=== PATIENT | female | born 1955 | race Caucasian/White ===

== ENCOUNTER 2016-06-12 13:57 | Outpatient (CLI) ==
[2015-11-21 10:48] VITALS: BMI 41.5
[2016-06-12 14:33] LABS: ADD URINE MICROSCOPIC NO; BILIRUBIN,URINE Negative (NEGATIVE); KETONES,URINE Negative (NEGATIVE); LEUKOCYTE ESTERASE ,URINE Negative (NEGATIVE); NITRITE,URINE Negative (NEGATIVE); PROTEIN,URINE Negative (NEGATIVE); URINE, BLOOD Negative (NEGATIVE)
== END 2016-06-12 13:58 | disposition home or self-care (01) ==
LOC: LAB 13:57
PROVIDERS: ATTEND Emergency Medicine
DX: R35.0 Frequency of micturition (principal); R39.15 Urgency of urination
CPT/HCPCS: 81001

== ENCOUNTER 2016-10-07 13:48 | Emergency (ER) ==
[2016-10-07 13:53] VITALS: BP 125/84; TEMP 98; BMI 43.2
[2016-10-07 14:27] LABS: BILIRUBIN,URINE 1+ (NEGATIVE); KETONES,URINE Negative (NEGATIVE); LEUKOCYTE ESTERASE ,URINE Negative (NEGATIVE); NITRITE,URINE Negative (NEGATIVE); PROTEIN,URINE 2+ (NEGATIVE); URINE, BLOOD 3+ (NEGATIVE)
[2016-10-07 14:29] LABS: ADD URINE MICROSCOPIC YES
[2016-10-07 14:30] LABS: BACTERIA,URINE 1+ (NOT PRESENT)
--- NOTE | 2016-10-07 14:39 | ED.PDOC ---
General ED Provider: Dr. BRENDA PARKINSON JR Chief Complaint: Vaginal Bleeding Stated Complaint: STARTED HAVING VAGINAL BLEEDING THIS MORNING...IN PULL UP PANTIES, SOME IN STOOL AND SOME ON TOILET PAPER. HAD WENT THROUGH MENOPAUSE IN HER EARLY 40S...EXPERIENCING BACK PAIN AND STOMACH CRAMPS SIMILAR TO WHEN SHE USED TO HAVE HER MONTHLY PERIODS[ End ]THIS MORNING 98.0 71 20 93% 125/84 . ---note UA results--- has lost 18 pounds over 3 months- disc need to see obgyn for biopsy ultrasound and definitive diagnosis --- possiblity of cancer discussed Time Seen by Physician: 14:38 Mode of Arrival: Walk-In Information Source: Patient Exam Limitations: No limitations Primary Care Provider: JACQUELIN MILTON Nursing and Triage Documentation Reviewed and Agree: No GI Complaint Exam - Abdominal Pain Complaint/Exam : 2 Para: 1 Hx Total # of Abortions (Spontaneous & Elective): 1 Review of Systems - Review Of Systems Constitutional: Reports: Malaise Eyes: Reports: No symptoms Ears, Nose, Mouth, Throat: Reports: No symptoms Respiratory: Reports: No symptoms Cardiac: Reports: No symptoms GI: Reports: Abdominal pain : Reports: Hematuria, Pain Musculoskeletal: Reports: No symptoms Skin: Reports: No symptoms Neurological: Reports: No symptoms Endocrine: Reports: No symptoms Hematologic/Lymphatic: Reports: No symptoms All Other Systems: Other Past Medical History - Past Medical History Previously Healthy: Yes Endocrine: Reports: DM 2 Cardiovascular: Reports: [place], Hypertension Respiratory: Reports: None Hematological: Reports: None Gastrointestinal: Reports: None Genitourinary: Reports: None Neuro/Psych: Reports: None Musculoskeletal: Reports: Arthritis Cancer: Reports: None Last Menstrual Period: N/A - Surgical History General Surgical History: Reports: Hysterectomy, Cholecystectomy - Family History Family History: Reports: Unknown - Social History Smoking Status: Current every day smoker Hx Substance Use: No Alcohol Screening: Occasionally - Immunizations Tetanus Shot up to Date: Yes Physical Exam - Physical Exam Appearance: Well-appearing, Obese Ill-appearing: Mild Pain Distress: Mild Neck: Supple Respiratory: Airway patent GI/: Soft, Nontender, No masses, Bowel sounds normal (note glaze handler exam) Musculoskeletal: Normal strength, ROM intact, No edema, No calf tenderness Skin: Warm, Dry, Normal color Neurological: Sensation intact, Motor intact, Reflexes intact, Cranial nerves intact, Alert, Oriented Critical Care Note - Critical Care Note Total Time (mins): 0 Course - Course Orders, Labs, Meds: Lab Review 10/07/16 14:05 Urine Color Red Urine Clarity Cloudy Urine pH 6.0 Ur Specific [place] 1.020 Urine Protein 2+ Urine Glucose (UA) 2+ Urine Ketones Negative Urine Blood 3+ Urine Nitrite Negative Urine Bilirubin 1+ Urine Urobilinogen 0.2 Ur Leukocyte Esterase Negative Urine Microscopic RBC Tntc Urine Microscopic WBC 5-10 Ur Squamous Epith Cells 5-10 Urine Bacteria 1+ Orders Category Date Time Status URINALYSIS C & S IF INDICATED Stat LAB 10/07/16 14:05 Completed URINE CULTURE Stat LAB 10/07/16 14:05 Received Vital Signs: Temp Pulse Resp BP Pulse Ox 10/07/16 13:48 98 F 71 20 125/84 93 L Departure - Departure Time of Disposition: 15:11 Disposition: HOME SELF-CARE Discharge Problem: Bleeding from vagina Instructions: Dysfunctional Uterine Bleeding (ED) Condition: Stable Pt referred to PMD for follow-up: Yes Additional Instructions: Please follow-up with Dr. iMlton in 1-2 days. follow up with Gynecology as soon as possible return if worse, consider hospital with research lab assistant on staff(andra copeland) Allergies/Adverse Reactions: Allergies No Known Allergies Allergy (Verified 10/07/16 13:55) Home Medications: Ambulatory Orders Lisinopril 20 mg PO BID 03/29/14 Metformin HCl 500 mg PO DAILY 03/29/14 Aspirin [Ecotrin] 81 mg PO DAILY 05/11/14 Atorvastatin Calcium 80 mg PO DAILY 05/11/14 Metoprolol Tartrate [Lopressor] 25 mg PO BID 05/11/14 Tizanidine HCl [Zanaflex] 2 mg PO DAILY 05/11/14 Hydrocodone/Acetaminophen [[place] 10-325 Tablet] 1 each PO Q6HR PRN #14 tablet Calcium Carbonate [Calcium] 2 cap PO DAILY 10/07/16 Canagliflozin [Invokana] 1 tab PO DAILY 10/07/16 Duloxetine HCl 60 mg PO DAILY 10/07/16 Gabapentin 300 mg PO TID 10/07/16 Hydrochlorothiazide 12.5 mg PO EVERY OTHER DAY 10/07/16 [place]-3 Fatty Acids/Fish Oil [Fish Oil 1,000 mg Capsule] 3 cap PO DAILY Tolterodine Tartrate 2 mg PO DAILY 10/07/16 Complaint Exam - UTI Female Complaint/Exam : 2 Para: 1 Hx Total # of Abortions (Spontaneous & Elective): 1 - Complaint/Exam Patient Complains of: Reports: Vaginal discharge (bleeding) Onset/Duration: since this am Symptoms Are: Still present Timing: Intermittent Episodes of Voiding Over Last 12 Hours: 3 Initial Severity: Moderate (cramping used hydrocodone) Current Severity: Mild Location of Pain: Reports: Suprapubic Character: Reports: Colicky, Cramping, Bloody urine Aggravating: Reports: None Alleviating: Reports: None Associated Signs and Symptoms: Reports: Back pain, Hematuria, Dysuria, Abdominal Pain, Vaginal bleeding. Denies: Diaphoresis, Fever, Constipation, Blood in stool, Rectal pain, Appetite change, Nausea, Vomiting, Decreased urine output, Increased urine frequency, Increased thirst, Decreased activity, Lethargy, Bubble bath use Related History: Denies: Similar episode Ovarian Torsion Risk Factors: Denies: None Surgical Obstruction Risk Factors: Denies: None RH Status: Unknown Related Surgical History: Reports: None Abdominal Findings: Present: None Vulva Exam: Present: Normal Findings Vaginal Exam: Present: Normal Findings, Blood Cervical Exam: Present: Normal findings, Discharge (blood) Uterine Exam: Size WNL, Nontender Adnexal Exam: Present: Normal Findings (not palpable) Differential Diagnoses: Other (DUB post menopausal bleed consider neoplasm)
[2016-10-12 19:09] LABS: GENITAL CULTURE Final report (.)
[2016-10-15 06:56] LABS: GENITAL CULT RESULT 1 Yeast isolated. (.)
== END 2016-10-07 15:50 | disposition home or self-care (01) ==
LOC: ED 13:48
DX: N93.8 Other specified abnormal uterine and vaginal bleeding (principal); M54.9 Dorsalgia, unspecified; R10.9 Unspecified abdominal pain; R63.4 Abnormal weight loss; R31.9 Hematuria, unspecified; E11.9 Type 2 diabetes mellitus without complications; I10 Essential (primary) hypertension; Z78.0 Asymptomatic menopausal state; Z79.899 Other long term (current) drug therapy; I25.2 Old myocardial infarction; F17.210 Nicotine dependence, cigarettes, uncomplicated
CPT/HCPCS: 36415; 81001; 87070; 87086; 99283

== ENCOUNTER 2017-01-24 14:51 | Emergency (ER) ==
[2017-01-24 14:55] VITALS: BP 153/84; TEMP 98.2; BMI 45.1
[2017-01-24 15:15] LABS: BILIRUBIN,URINE 1+ (NEGATIVE); KETONES,URINE Trace (NEGATIVE); LEUKOCYTE ESTERASE ,URINE 3+ (NEGATIVE); NITRITE,URINE Negative (NEGATIVE); PROTEIN,URINE 1+ (NEGATIVE); URINE, BLOOD 2+ (NEGATIVE)
[2017-01-24 15:16] LABS: ADD URINE MICROSCOPIC YES
[2017-01-24 15:19] LABS: BACTERIA,URINE TRACE (NOT PRESENT)
[2017-01-24 15:32] LABS: BASOPHILS # (AUTO) 0.1 K/uL (0-0.2); BASOPHILS % (AUTO) 0.5 % (0.0-3.0); EOSINOPHILS # (AUTO) 0.3 K/ul (0.0-0.7); EOSINOPHILS % (AUTO) 2.7 % (0.0-7.0); HEMATOCRIT 49.4 % (37.0-47.0); HEMOGLOBIN 16.1 g/dl (12.0-16.0); IMMATURE GRANULOCYTE % (AUTO) 0.9 % (0.0-5.0); MEAN CORPUSCULAR HEMOGLOBIN 29.1 pg (27.0-31.0); MEAN CORPUSCULAR HGB CONC 32.6 (31.8-35.4); MEAN CORPUSCULAR VOLUME 89.2 fl (81.0-99.0); MONOCYTES # (AUTO) 0.8 K/uL (0.4-2.0); MONOCYTES % (AUTO) 7.5 (0-10); NEUTROPHILS # (AUTO) 7.3 K/ul (2.0-6.9); NEUTROPHILS % (AUTO) 69.4; PLATELET COUNT 236 10^3/uL (140-440); RED BLOOD COUNT 5.54 10^6/ul (4.20-5.40); WHITE BLOOD COUNT 10.52 K/ul (4.6-10.2)
[2017-01-24 15:50] LABS: ALBUMIN 3.3 g/dL (3.4-5.0); ALBUMIN/GLOBULIN RATIO 0.87; ANION GAP 14.7; BILIRUBIN,TOTAL 0.39 mg/dL (0.00-1.20); BUN/CREATININE RATIO 15.78; CALCIUM 9.8 mg/dL (8.2-10.2); CREATININE 0.76 mg/dL (0.60-1.30); POTASSIUM 3.7 mmol/L (3.5-5.10); TOTAL PROTEIN 7.1 g/dL (5.8-8.1)
[2017-01-24] MEDS ORDERED: LIDOCAINE HCL 1% SDV SUBCUT STA (16:06)
[2017-01-24] MEDS ORDERED: ROCEPHIN IM STA (16:06)
--- NOTE | 2017-01-24 16:10 | ED.PDOC ---
General ED Provider: Dr. SETH LEI Chief Complaint: Urinary Problem Stated Complaint: dysuria Time Seen by Physician: 15:00 Mode of Arrival: Walk-In Information Source: Patient Exam Limitations: No limitations Primary Care Provider: JACQUELIN MILTON Nursing and Triage Documentation Reviewed and Agree: Yes Complaint Exam - Complaint/Exam Patient Complains of: Reports: Dysuria Onset/Duration: 3 days Symptoms Are: Still present Timing: Intermittent Initial Severity: Moderate Current Severity: Mild Location of Pain: Reports: Right, Left, Flank, Suprapubic Character: Reports: Burning, Cramping Aggravating: Reports: Urination Alleviating: Reports: None Associated Signs and Symptoms: Reports: Dysuria. Denies: Diaphoresis, Back pain , Fever, Hematuria, Constipation, Blood in stool, Rectal pain, Appetite change, Nausea, Vomiting, Decreased urine output, Increased urine frequency, Increased thirst, Decreased activity, Lethargy, Abdominal Pain, Bubble bath use, Vaginal bleeding, Vaginal discharge, Genital swelling, Genital blisters, Retained foreign body Related History: Reports: Similar episode Ectopic Risk Factors: Reports: None Ovarian Torsion Risk Factors: Reports: None Surgical Obstruction Risk Factors: Reports: None RH Status: Unknown Related Surgical History: Reports: None Abdominal Findings: Present: None Differential Diagnoses: Ureteral Stone, UTI Review of Systems - Review Of Systems Constitutional: Reports: No symptoms Eyes: Reports: No symptoms Ears, Nose, Mouth, Throat: Reports: No symptoms Respiratory: Reports: No symptoms Cardiac: Reports: No symptoms GI: Reports: No symptoms : Reports: Dysuria, Flank pain Musculoskeletal: Reports: No symptoms Skin: Reports: No symptoms Neurological: Reports: No symptoms Endocrine: Reports: No symptoms Hematologic/Lymphatic: Reports: No symptoms All Other Systems: Reviewed and Negative Past Medical History - Past Medical History Previously Healthy: Yes Endocrine: Reports: DM 2 Cardiovascular: Reports: [place], Hypertension Respiratory: Reports: None Hematological: Reports: None Gastrointestinal: Reports: None Genitourinary: Reports: None Neuro/Psych: Reports: None Musculoskeletal: Reports: Arthritis Cancer: Reports: None Last Menstrual Period: N/A - Surgical History General Surgical History: Reports: Hysterectomy, Cholecystectomy - Family History Family History: Reports: Unknown - Social History Smoking Status: Current every day smoker Hx Substance Use: No Alcohol Screening: Occasionally - Immunizations Tetanus Shot up to Date: No Physical Exam - Physical Exam Appearance: Well-appearing, No pain distress, Well-nourished Eyes: IVAN, EOMI, Conjunctiva clear ENT: Ears normal, Nose normal, Oropharynx normal Respiratory: Airway patent, Breath sounds clear, Breath sounds equal, Respirations nonlabored Cardiovascular: RRR, Pulses normal, No rub, No murmur GI/: Soft, Nontender, No masses, Bowel sounds normal, No Organomegaly Musculoskeletal: Normal strength, ROM intact, No edema, No calf tenderness Skin: Warm, Dry, Normal color Neurological: Sensation intact, Motor intact, Reflexes intact, Cranial nerves intact, Alert, Oriented Psychiatric: Affect appropriate, Mood appropriate Critical Care Note - Critical Care Note Total Time (mins): 0 Course - Course Hematology/Chemistry: 01/24/17 15:30 01/24/17 15:30 Orders, Labs, Meds: Lab Review 01/24/17 01/24/17 01/24/17 15:00 15:30 15:30 WBC 10.52 H RBC 5.54 H Hgb 16.1 H Hct 49.4 H MCV 89.2 MCH 29.1 MCHC 32.6 RDW Coeff of Brenda 14.6 Plt Count 236 Immature Gran % (Auto) 0.9 Neut % (Auto) 69.4 Lymph % (Auto) 19.0 [place] % (Auto) 7.5 Eos % (Auto) 2.7 Baso % (Auto) 0.5 Immature Gran # (Auto) 0.1 Neut # 7.3 H Lymph # 2.0 [place] # 0.8 Eos # 0.3 Baso # 0.1 Sodium 145 Potassium 3.7 Chloride 108 H Carbon Dioxide 26 Anion Gap 14.7 BUN 12 Creatinine 0.76 Estimated GFR (MDRD) 78.00 BUN/Creatinine Ratio 15.78 Glucose 183 H Calcium 9.8 Total Bilirubin 0.39 AST 9 L ALT 11 L Alkaline Phosphatase 85 Total Protein 7.1 Albumin 3.3 L Globulin 3.8 Albumin/Globulin Ratio 0.87 Urine Color Yellow Urine Clarity Cloudy Urine pH 6.0 Ur Specific [place] >=1.030 Urine Protein 1+ Urine Glucose (UA) Negative Urine Ketones Trace Urine Blood 2+ Urine Nitrite Negative Urine Bilirubin 1+ Urine Urobilinogen 1.0 Ur Leukocyte Esterase 3+ Urine Microscopic RBC 2-5 Urine Microscopic WBC 10-20 Ur Squamous Epith Cells 5-10 Urine Bacteria Trace Orders Category Date Time Status CBC W/ AUTO DIFF Stat LAB 10/05/17 15:20 Ordered COMPREHENSIVE METABOLIC PANEL Stat LAB 01/24/17 15:20 Ordered UA [URINALYSIS C & S IF INDICATED] Stat LAB 01/24/17 15:00 Completed URINALYSIS C & S IF INDICATED Stat LAB 01/24/17 15:20 Uncollected URINE CULTURE Routine LAB 01/24/17 15:20 Received Ceftriaxone Sodium [Rocephin] MEDS 01/24/17 16:06 Stat 1 gm IM ONCE STA Lidocaine HCl/Pf [Lidocaine HCl 1% Sdv] MEDS 01/24/17 16:06 Stat 5 ml SUBCUT ONCE STA CT ABDOMEN/PELVIS WO CONTRAST Stat RADS 01/24/17 15:22 Ordered Medications Discontinued Medications Generic Name Dose Route Start Last Admin Trade Name Freq PRN Reason Stop Dose Admin Ceftriaxone Sodium 1 gm 01/24/17 16:06 Rocephin IM 01/24/17 16:07 ONCE STA Lidocaine HCl 5 ml 01/24/17 16:06 Lidocaine Hcl 1% Sdv SUBCUT 01/24/17 16:07 ONCE STA Vital Signs: Temp Pulse Resp BP Pulse Ox 01/24/17 14:52 98.2 F 86 20 153/84 H 94 L Departure - Departure Time of Disposition: 16:08 (seen with santiago ct scannnnader down requested pt to obtain report from pmd) Disposition: HOME SELF-CARE Discharge Problem: Urinary tract infectious disease Instructions: Urinary Tract Infection in Women (ED) Condition: Good Pt referred to PMD for follow-up: Yes Additional Instructions: Please call your Family Physician as soon as possible to schedule a follow-up appointment. Allergies/Adverse Reactions: Allergies No Known Allergies Allergy (Verified 01/24/17 14:55) Home Medications: Ambulatory Orders Lisinopril 20 mg PO BID 03/29/14 Metformin HCl 500 mg PO DAILY 03/29/14 Aspirin [Ecotrin] 81 mg PO DAILY 05/11/14 Atorvastatin Calcium 80 mg PO DAILY 05/11/14 Metoprolol Tartrate [Lopressor] 25 mg PO BID 05/11/14 Tizanidine HCl [Zanaflex] 2 mg PO DAILY 05/11/14 Hydrocodone/Acetaminophen [[place] 10-325 Tablet] 1 each PO Q6HR PRN #14 tablet Calcium Carbonate [Calcium] 2 cap PO DAILY 10/07/16 Duloxetine HCl 60 mg PO DAILY 10/07/16 Gabapentin 300 mg PO TID 10/07/16 Hydrochlorothiazide 12.5 mg PO EVERY OTHER DAY 10/07/16 Naproxen [Naprosyn] 500 mg PO Q12HR PRN #30 tablet 10/07/16 [place]-3 Fatty Acids/Fish Oil [Fish Oil 1,000 mg Capsule] 3 cap PO DAILY Tolterodine Tartrate 2 mg PO DAILY 10/07/16
--- NOTE | 2017-01-24 16:28 | CT ---
EXAM: CT scan of the abdomen and pelvis without contrast HISTORY: Pain TECHNIQUE: Imaging of the abdomen and pelvis was performed without contrast. 5 mm thin axial images and coronal and sagittal images were provided for interpretation. FINDINGS: There has been previous cholecystectomy. Low density changes are seen within the liver. The spleen, pancreas, adrenal glands and kidneys appear normal. The proximal ureters are normal size . There is a nonobstructing calculus seen within the inferior pole of the right kidney. The small a nd large bowel loops are normal caliber. There is no free air. No retroperitoneal abnormalities are seen. The helical images obtained through the pelvis demonstrate a normal appearance of the rectum, urinary bladder. There is no free fluid seen within the pelvis. The appendix appears normal. Scattered dive rticula are seen within the sigmoid colon without acute inflammation. Lung bases are clear. No lytic or blastic lesions are seen within the osseous structures. IMPRESSION: There is no bowel obstruction or acute inflammatory change seen within the abdomen and p kofi. There has been previous cholecystectomy. Fatty infiltration of the liver.
== END 2017-01-24 16:49 | disposition home or self-care (01) ==
LOC: ED 14:51
DX: N39.0 Urinary tract infection, site not specified (principal); F17.210 Nicotine dependence, cigarettes, uncomplicated; E11.9 Type 2 diabetes mellitus without complications; I10 Essential (primary) hypertension; I25.2 Old myocardial infarction; Z79.899 Other long term (current) drug therapy
CPT/HCPCS: 36415; 80053; 81001; 85025; 87086; 87186; 96372; 99283

== ENCOUNTER 2017-04-09 12:32 | Outpatient (CLI) | END 2017-04-09 12:33 | disposition home or self-care (01) | LOC: CAR 12:32 | PROVIDERS: ATTEND Internal Medicine | DX: R06.02 Shortness of breath (principal) | CPT/HCPCS: 94761 ==

== ENCOUNTER 2017-04-27 13:06 | Emergency (ER) ==
[2017-04-27 13:21] VITALS: BP 185/91; TEMP 100.5; BMI 45.3
--- NOTE | 2017-04-27 13:23 | ED.PDOC ---
General ED Provider: Dr. CRISTI BERTRAND Chief Complaint: Respiratory Complaint Stated Complaint: Patient is a 61 year old female who comes to the ER with Cough , sneezing, body aches, and SOA. States she took Aleve yesterday, none today. Time Seen by Physician: 13:22 Mode of Arrival: Walk-In Information Source: Patient Exam Limitations: No limitations Primary Care Provider: JACQUELIN MILTON Nursing and Triage Documentation Reviewed and Agree: Yes Reviewed sepsis parameters & appropriate labs ordered?: Yes System Inflammatory Response Syndrome: Resp >20/Minute Sepsis Protocol: For patient's 13 years and over: Temp is 96.8 and below OR 101 and greater Pulse >90 BPM Resp >20/minute Acutely Altered Mental Status Are patient's symptoms suggestive of a new infection, such as: -Pneumonia -Skin, Soft Tissue -Endocarditis -UTI -Bone, Joint Infection -Implantable Device -Acute Abdominal Infection -Wound Infection -Meningitis -Blood Stream Catheter Infection -Unknown System Inflammatory Response Syndrome: Not Applicable Respiratory Complaint Exam - Respiratory Complaint/Exam Onset/Duration: 1 month Symptoms Are: Still present Timing: Constant Initial Severity: Mild Current Severity: Moderate Location: Chest Character: Reports: Non-productive cough Aggravating: Reports: Allergens, URI, Passive smoke exposure, Weather Alleviating: Reports: None Associated Signs and Symptoms: Reports: Dyspnea, URI Related History: Reports: Similar episode History of Healthcare-Acquired Pneumonia: No Related Surgical History: Reports: None Pulmonary Embolism Risk Factors: None Cardiac Risk Factors: Reports: None Pseudomonas Risk Factors: Reports: None Tuberculosis Risk Factors: Reports: None Status Asthmaticus Risk Factors: Reports: None Home Oxygen Use: No Recent Stress Test: No Recent Echo/LV Function: No Current Antibiotic Use: No Current Asthma Medication Use: No Inadequate Respiratory Effort: No Dysphagia Present: No Stridor Present: No JVD Present: No Accessory Muscle Use: No Retractions: Not Present Review of Systems - Review Of Systems Constitutional: Reports: Other (bodyaches.) Eyes: Reports: No symptoms Ears, Nose, Mouth, Throat: Reports: No symptoms Respiratory: Reports: Cough (with sneezing ), Short of air Cardiac: Reports: No symptoms GI: Reports: No symptoms : Reports: No symptoms Musculoskeletal: Reports: No symptoms Skin: Reports: No symptoms Neurological: Reports: No symptoms Endocrine: Reports: No symptoms Hematologic/Lymphatic: Reports: No symptoms All Other Systems: Reviewed and Negative Past Medical History - Past Medical History Previously Healthy: Yes Endocrine: Reports: DM 2 Cardiovascular: Reports: [place], Hypertension Respiratory: Reports: None Hematological: Reports: None Gastrointestinal: Reports: None Genitourinary: Reports: None Neuro/Psych: Reports: None Musculoskeletal: Reports: Arthritis Cancer: Reports: None Last Menstrual Period: unknown - Surgical History General Surgical History: Reports: Hysterectomy, Cholecystectomy - Family History Family History: Reports: Unknown - Social History Smoking Status: Current every day smoker, Heavy tobacco smoker Hx Substance Use: No Alcohol Screening: None Physical Exam - Physical Exam Appearance: Ill-appearing, No pain distress, Obese Ill-appearing: Mild Eyes: IVAN, EOMI, Conjunctiva clear ENT: Ears normal, Nose normal, Oropharynx normal Respiratory: Airway patent, Breath sounds equal, Breath sounds diminished, Respirations nonlabored Cardiovascular: RRR, Pulses normal, No rub, No murmur GI/: Soft, Nontender, No masses, Bowel sounds normal, No Organomegaly Musculoskeletal: Normal strength, ROM intact, No edema, No calf tenderness Skin: Warm, Dry, Normal color Neurological: Sensation intact, Motor intact, Reflexes intact, Cranial nerves intact, Alert, Oriented Psychiatric: Affect appropriate, Mood appropriate Interpretation - Radiology Interpretation Radiology Interpretation By: ED Physician Radiology Results: Negative Exam Interpreted: CXR Critical Care Note - Critical Care Note Total Time (mins): 0 Course - Course Orders, Labs, Meds: Lab Review 04/27/17 13:58 Influenza A (Rapid) Negative by naat Influenza B (Rapid) Negative by naat Orders Category Date Time Status NEBULIZER TREATMENT Stat CARDIO 04/27/17 13:24 Completed FLU A & B RAPID TEST [MOLECULAR FLU A/B] Stat LAB 04/27/17 13:58 Completed Ipratropium/Albuterol Neb [Duoneb] MEDS 04/27/17 13:24 Discontinued 1 vial NEB ONCE STA Prednisone MEDS 04/27/17 13:25 Discontinued 40 mg PO ONCE STA CHEST, 2 VIEWS PA & LAT Stat RADS 04/27/17 13:22 Completed Medications Discontinued Medications Generic Name Dose Route Start Last Admin Trade Name Freq PRN Reason Stop Dose Admin Albuterol/Ipratropium 1 vial 04/27/17 13:24 04/27/17 13:40 Duoneb NEB 04/27/17 13:25 1 vial ONCE STA Administration Prednisone 40 mg 04/27/17 13:25 04/27/17 14:53 Prednisone PO 04/27/17 13:26 40 mg ONCE STA Administration Vital Signs: Temp Pulse Resp BP Pulse Ox 04/27/17 13:07 100.5 F H 80 22 185/91 H 92 L Departure - Departure Time of Disposition: 14:38 Disposition: HOME SELF-CARE Discharge Problem: Bronchitis Instructions: Acute Bronchitis (ED) Condition: Stable Pt referred to PMD for follow-up: Yes Additional Instructions: Push fluids Quit smoking Take medications as prescribed. Prescriptions: Benzonatate [Tessalon Perles] 100 mg PO TID PRN #25 capsule PRN Reason: Cold Symptons Doxycycline Hyclate 100 mg PO BID #20 capsule Methylprednisolone [Medrol Dosepak] 4 mg PO DIRECTED #1 pkg Allergies/Adverse Reactions: Allergies No Known Allergies Allergy (Verified 04/27/17 13:16) Home Medications: Ambulatory Orders Lisinopril 20 mg PO BID 03/29/14 Metformin HCl 500 mg PO DAILY 03/29/14 Aspirin [Ecotrin] 81 mg PO DAILY 05/11/14 Atorvastatin Calcium 80 mg PO DAILY 05/11/14 Metoprolol Tartrate [Lopressor] 25 mg PO BID 05/11/14 Tizanidine HCl [Zanaflex] 2 mg PO DAILY 05/11/14 Hydrocodone/Acetaminophen [[place] 10-325 Tablet] 1 each PO Q6HR PRN #14 tablet Calcium Carbonate [Calcium] 2 cap PO DAILY 10/07/16 Duloxetine HCl 60 mg PO DAILY 10/07/16 Gabapentin 300 mg PO TID 10/07/16 Hydrochlorothiazide 12.5 mg PO EVERY OTHER DAY 10/07/16 Naproxen [Naprosyn] 500 mg PO Q12HR PRN #30 tablet 10/07/16 [place]-3 Fatty Acids/Fish Oil [Fish Oil 1,000 mg Capsule] 3 cap PO DAILY Tolterodine Tartrate 2 mg PO DAILY 10/07/16 Benzonatate [Tessalon Perles] 100 mg PO TID PRN #25 capsule 04/27/17 Doxycycline Hyclate 100 mg PO BID #20 capsule 04/27/17 Methylprednisolone [Medrol Dosepak] 4 mg PO DIRECTED #1 pkg 04/27/17 Disposition Discussed With: Patient
[2017-04-27] MEDS ORDERED: DUONEB NEB STA (13:24)
[2017-04-27] MEDS ORDERED: PREDNISONE PO STA (13:25)
--- NOTE | 2017-04-27 14:41 | DI ---
EXAM: Chest two views HISTORY: Cough, shortness of breath COMPARISON: 09/30/2013 TECHNIQUE: Two views of the chest were performed FINDINGS: No airspace consolidation. Granulomatous calcification. There is no pleural effusion or pneumothorax. The heart is normal in size. The mediastinal contour is normal. There are no acute a bnormalities of the bones. Old left rib fracture. IMPRESSION: No acute cardiopulmonary process.
== END 2017-04-27 15:17 | disposition home or self-care (01) ==
LOC: ED 13:06
DX: J40 Bronchitis, not specified as acute or chronic (principal); F17.210 Nicotine dependence, cigarettes, uncomplicated
CPT/HCPCS: 87502; 94640; 99283

== ENCOUNTER 2017-08-25 00:40 | Emergency (ER) ==
[2017-08-25 00:55] VITALS: BP 147/89; TEMP 98.2; BMI 43.8
--- NOTE | 2017-08-25 02:20 | ED.PDOC ---
General ED Provider: Dr. HELEN ANAYA Chief Complaint: Shoulder Pain/Injury Stated Complaint: Experiencing pain in lower rt neck and upper shoulder since . Primary discomfort over site of 1st costovertebral articulation / paraspinous region. Denies radiculating features. Time Seen by Physician: 00:55 Mode of Arrival: Walk-In Information Source: Patient Exam Limitations: No limitations Primary Care Provider: JACQUELIN MILTON Nursing and Triage Documentation Reviewed and Agree: Yes Reviewed sepsis parameters & appropriate labs ordered?: Yes System Inflammatory Response Syndrome: Not Applicable Sepsis Protocol: For patient's 13 years and over: Temp is 96.8 and below OR 101 and greater Pulse >90 BPM Resp >20/minute Acutely Altered Mental Status Are patient's symptoms suggestive of a new infection, such as: -Pneumonia -Skin, Soft Tissue -Endocarditis -UTI -Bone, Joint Infection -Implantable Device -Acute Abdominal Infection -Wound Infection -Meningitis -Blood Stream Catheter Infection -Unknown System Inflammatory Response Syndrome: Not Applicable Musculoskeletal Complaint Exam - Shoulder Pain Complaint/Exam Mechanism of Injury: Reports: No known trauma Symptoms Are: Still present Timing: Constant Initial Severity: Severe Current Severity: Moderate Location: Reports: Discrete Character: Reports: Sharp, Dull, Aching, Throbbing, Spasmodic, Stiffness Alleviating: Reports: None Aggravating: Reports: Movement, Lifting, Flexion, External rotation, Abduction Associated Signs and Symptoms: Denies: Swelling, Redness, Bruising, Fever, Weakness, Numbness, Tingling Related History: Reports: Dominant hand right. Denies: Similar episode, Occupational injury DVT Risk Factors: Reports: None Septic Arthritis Risk Factors: Reports: None Related Surgical History: Reports: None Limited Range of Motion: Present: External rotation, Rotator cuff muscles Differential Diagnoses: Arthritis, Strain, Bursitis Review of Systems - Review Of Systems Constitutional: Reports: No symptoms Eyes: Reports: No symptoms Ears, Nose, Mouth, Throat: Reports: No symptoms Respiratory: Reports: No symptoms Cardiac: Reports: No symptoms GI: Reports: No symptoms : Reports: No symptoms Musculoskeletal: Reports: No symptoms, Joint swelling (Rt shoulder tender-site of first costal verterbral joint) Skin: Reports: No symptoms Neurological: Reports: No symptoms Endocrine: Reports: No symptoms Hematologic/Lymphatic: Reports: No symptoms All Other Systems: Reviewed and Negative Past Medical History - Past Medical History Previously Healthy: Yes Endocrine: Reports: DM 2 Cardiovascular: Reports: IA, Hypertension Respiratory: Reports: None Hematological: Reports: None Gastrointestinal: Reports: None Genitourinary: Reports: None Neuro/Psych: Reports: None Musculoskeletal: Reports: Arthritis Cancer: Reports: None Last Menstrual Period: UNKNOWN - Surgical History General Surgical History: Reports: Hysterectomy, Cholecystectomy - Family History Family History: Reports: Unknown - Social History Smoking Status: Current every day smoker, Heavy tobacco smoker Hx Substance Use: No Alcohol Screening: None - Immunizations Tetanus Shot up to Date: No Physical Exam - Physical Exam Appearance: Well-appearing, Obese Ill-appearing: Mild Pain Distress: Moderate Eyes: IVAN, EOMI, Conjunctiva clear ENT: Ears normal, Nose normal, Oropharynx normal Neck: Supple (Tenderness Rt C7T1 and first costovertebral joint/middle trapezius tenderness) Respiratory: Airway patent, Breath sounds clear, Breath sounds equal, Respirations nonlabored Cardiovascular: RRR, Pulses normal, No rub, No murmur GI/: Soft Musculoskeletal: Normal strength Skin: Warm, Dry, Normal color Neurological: Sensation intact, Motor intact, Reflexes intact, Cranial nerves intact, Alert, Oriented Psychiatric: Affect appropriate, Mood appropriate Re-Evaluation - Re-Evaluation Time of Re-Evaluation: 03:45 Status: Improved Vital Signs Stable: Yes Appearance: NAD Lungs: Clear Skin: Warm and Dry Neuro: Alert and Oriented X3 CV: RRR Critical Care Note - Critical Care Note Total Time (mins): 0 Course - Course Orders, Labs, Meds: Orders Category Date Time Status Ketorolac Tromethamine [Toradol] MEDS 08/25/17 02:30 Discontinued 15 mg IM ONCE STA CT CERVICAL SPINE W/O CONTRAST Stat RADS 08/25/17 02:[address] SHOULDER RIGHT W/O CONTRAST Stat RADS 08/25/17 02:28 Completed Medications Discontinued Medications Generic Name Dose Route Start Last Admin Trade Name Freq PRN Reason Stop Dose Admin Ketorolac Tromethamine 15 mg 08/25/17 02:30 08/25/17 02:35 Toradol IM 08/25/17 02:31 15 mg ONCE STA Administration Vital Signs: Temp Pulse Resp BP Pulse Ox 08/25/17 00:40 98.2 F 71 20 147/89 H 94 L Departure - Departure Time of Disposition: 05:15 Disposition: HOME SELF-CARE Discharge Problem: Cervical osteoarthritis, Somatic dysfunction of costovertebral joint structure , Shoulder pain, right, Osteolytic lesion Instructions: Arthralgia (ED), Neck Pain (ED) Condition: Good Pt referred to PMD for follow-up: Yes (1 week ) IPMP verified?: No Additional Instructions: Take Current Analgesics and muscle relaxants for pain relief Apply warm moist heat per tolerance for relief of discomfort Exercises as directed See PCP next week Explained testing results and importance of follow up Return earlier if symptoms worsen Allergies/Adverse Reactions: Allergies No Known Allergies Allergy (Verified 08/25/17 00:47) Home Medications: Ambulatory Orders Lisinopril 20 mg PO BID 03/29/14 Metformin HCl 500 mg PO BID 03/29/14 Aspirin [Ecotrin] 81 mg PO DAILY 05/11/14 Atorvastatin Calcium 80 mg PO DAILY 05/11/14 Metoprolol Tartrate [Lopressor] 25 mg PO BID 05/11/14 Tizanidine HCl [Zanaflex] 4 mg PO DAILY 05/11/14 Hydrocodone/Acetaminophen [[place] 10-325 Tablet] 1 each PO Q6HR PRN #14 tablet Gabapentin 300 mg PO TID 10/07/16 Hydrochlorothiazide 12.5 mg PO EVERY OTHER DAY 10/07/16 Oxybutynin Chloride [Ditropan] 5 mg PO DAILY 08/25/17 Disposition Discussed With: Patient
[2017-08-25] MEDS ORDERED: TORADOL IM STA (02:30)
--- NOTE | 2017-08-25 04:29 | CT ---
Exam: CT cervical spine without contrast History: Shoulder and neck pain without injury Technique: [address] cervical spine with multiplanar reformations FINDINGS: The cervical spine shows normal alignment. Vertebral body height is maintained. There is a 6 mm osteolytic lucency of the tip of the spinous process of C7. Probable cortical fracture of th e spinous process tip. No additional suspicious bony lesions are seen. C2-C3: Unilateral right facet arthropathy change without significant central canal or foraminal narr owing. C3-C4: Posterior disc osteophyte complex with right-sided predominance. Mild anterior sac indentati on. Mild right and no left foraminal narrowing. C4-C5: No central canal or foraminal stenosis C5-C6: Posterior disc osteophyte with mild - moderate anterior sac indentation. Moderate bilateral foraminal narrowing. C6-C7: No central canal or foraminal stenosis. C7-T1: No central canal or foraminal stenosis. Impression: 1. There is a osteolytic lesion of the right aspect of the tip of the C7 spinous process. Hairline cortical pathologic fracture suspected. This was not present on cervical spine CT 12/30/2007. Benign and malignant etiologies are considered. 2. Degenerative changes as described.
--- NOTE | 2017-08-25 04:30 | CT ---
Exam: CT right shoulder without contrast History: Shoulder pain Technique: [address] of the right shoulder with multiplanar reformations FINDINGS: No fracture lines are seen. Moderate osteoarthritic enlargement of the acromioclavicular joint. Mild osteoarthritic change of the glenohumeral joint manifest by marginal cystic changes of t he humerus. No acute adjacent chest wall abnormality. Prior healed right rib fractures. Impression: 1. Glenohumeral and acromioclavicular osteoarthritic changes. No acute abnormality of the right ricky ulder.
== END 2017-08-25 05:28 | disposition home or self-care (01) ==
LOC: ED 00:40
DX: M47.812 Spondylosis without myelopathy or radiculopathy, cervical region (principal); M99.08 Segmental and somatic dysfunction of rib cage; M25.511 Pain in right shoulder; M89.9 Disorder of bone, unspecified
CPT/HCPCS: 96372; 99282

== ENCOUNTER 2017-09-06 12:56 | Outpatient (CLI) ==
--- NOTE | 2017-09-09 09:32 | MAMMO ---
EXAM: Bilateral digital screening mammogram (2-D and 3-D) History: Screening Comparison: Bilateral mammogram 03/15/2015 Findings: MLO and CC views of bilateral breasts demonstrate predominately fatty replaced breast pare nchyma. CAD was reviewed by the radiologist. Tomosynthesis was performed. There are no dominant mas ses, no suspicious microcalcifications and no architectural distortions Impression: Stable negative mammogram. Recommend followup routine screening mammography in 1 year. BIRADS 1
== END 2017-09-06 12:57 | disposition home or self-care (01) ==
LOC: RAD 12:56
PROVIDERS: ATTEND Internal Medicine
DX: Z12.31 Encounter for screening mammogram for malignant neoplasm of breast (principal)
CPT/HCPCS: 77067

== ENCOUNTER 2020-01-17 12:06 | Inpatient (IN) ==
[2020-01-17] MEDS ORDERED: ROCEPHIN 2 GM/50 ML D5W 2 GM/50 ML BAG IV STA (12:20)
[2020-01-17] MEDS ORDERED: SODIUM CHLORIDE 1,000 ML IV STA (12:25)
[2020-01-17 12:36] LABS: BASOPHILS % (AUTO) 0.2 % (0.0-3.0); EOSINOPHILS # (AUTO) 0.2 K/ul (0.0-0.7); EOSINOPHILS % (AUTO) 1.1 % (0.0-7.0); HEMOGLOBIN 14.3 g/dl (12.0-16.0); IMMATURE GRANULOCYTE # (AUTO) 0.1 (0.0-1.0); IMMATURE GRANULOCYTE % (AUTO) 0.5 % (0.0-5.0); LYMPHOCYTES # (AUTO) 1.8 K/uL (0.60-3.4); LYMPHOCYTES % (AUTO) 11.1 (10.0-50.0); MEAN CORPUSCULAR HEMOGLOBIN 27.4 pg (27.0-31.0); MEAN CORPUSCULAR HGB CONC 31.8 (31.8-35.4); MEAN CORPUSCULAR VOLUME 86.4 fl (81.0-99.0); MONOCYTES # (AUTO) 0.9 K/uL (0.4-2.0); MONOCYTES % (AUTO) 5.3 (0-10); NEUTROPHILS # (AUTO) 13.6 K/ul (2.0-6.9); NEUTROPHILS % (AUTO) 81.8 % (42.2-75.2); PLATELET COUNT 353 10^3/uL (140-440); RDW COEFFICIENT OF VARIATION 15.3 % (11.6-14.8); RED BLOOD COUNT 5.21 10^6/ul (4.20-5.40); WHITE BLOOD COUNT 16.65 K/ul (4.6-10.2)
[2020-01-17 12:48] LABS: CARBON DIOXIDE 26.5 mmol/L (22-30.0); CHLORIDE 100.8 mmol/L (98-107); POTASSIUM 3.75 mmol/L (3.5-5.1); SODIUM 136.7 mmol/L (134.5-145)
--- NOTE | 2020-01-17 13:52 | ED.PDOC ---
General ED Provider: Dr. ERNESTO LEWIS Chief Complaint: Extremity Swelling/Pain Stated Complaint: L hand, L arm infection Time Seen by Physician: 12:15 Mode of Arrival: Ambulance Information Source: Patient Primary Care Provider: JACQUELIN MILTON Nursing and Triage Documentation Reviewed and Agree: Yes Does patient meet sepsis criteria?: No System Inflammatory Response Syndrome: Not Applicable Sepsis Protocol: For patient's 13 years and over: Temp is 96.8 and below OR 101 and greater Pulse >90 BPM Resp >20/minute Acutely Altered Mental Status Are patient's symptoms suggestive of a new infection, such as: -Pneumonia -Skin, Soft Tissue -Endocarditis -UTI -Bone, Joint Infection -Implantable Device -Acute Abdominal Infection -Wound Infection -Meningitis -Blood Stream Catheter Infection -Unknown Miscellaneous Complaint Exam Physical Examination Complaint/Exam Onset/Duration: 3 days ago, pt c/o pain L thumb .. thought it was arthritis. Since then, r Symptoms Are: Worse Timing: Constant Episodes Lasting: Days Initial Severity: Moderate Current Severity: Severe Location: L hand redness, warmth, swelling extends up entire L arm. Character: erythema, swelling, painful, Aggravating: motion, "everything." Alleviating: keeping LUE still with hand supported. Associated Signs and Symptoms: L wrist "tight", L digits w decreased sensation distally, L digits swollen, Related History: Reports No other known history Specific Findings: Pt unable to move L fingers to make fist; unable to flex L wrist; L forearm swollen; L upper arm also swollen, but less so. No discrete streaks up L arm. Differential Diagnoses: Insect/animal bite v impaled w sharp object (pt denies both) Review of Systems Review Of Systems Constitutional: Reports No symptoms All Other Systems: Reviewed and Negative [facility] Medical History (Updated 01/17/20 @ 14:01 by ERNESTO LEWIS) Atherosclerosis of coronary artery Diabetes mellitus Hyperlipidemia Hypertension Social History Smoking and tobacco status: Current every day smoker Female Reproductive History Menstrual Hx Hysterectomy: No Hx Tubal Ligation: No Physical Exam Physical Exam Appearance: Reports Ill-appearing Ill-appearing: Moderate Pain Distress: Moderate Eyes: Reports IVAN, EOMI and Conjunctiva clear ENT: Reports Ears normal and Nose normal Neck: Supple Respiratory: Reports Airway patent and Breath sounds clear Cardiovascular: Reports RRR and Pulses normal GI/: Reports Soft and Nontender Musculoskeletal: Reports ROM intact Skin: Reports Warm and Dry Neurological: Reports Sensation intact and Motor intact Psychiatric: Reports Mood appropriate Critical Care Note Critical Care Note Total Time (mins): 40 Course Course Hematology/Chemistry: 01/17/20 12:30 01/17/20 12:30 Orders, Labs, Meds: Lab Review 01/17/20 01/17/20 12:30 12:30 WBC 16.65 H RBC 5.21 Hgb 14.3 Hct 45.0 MCV 86.4 MCH 27.4 MCHC 31.8 RDW Coeff of Brenda 15.3 H Plt Count 353 Immature Gran % (Auto) 0.5 Neut % (Auto) 81.8 H Lymph % (Auto) 11.1 Walker % (Auto) 5.3 Eos % (Auto) 1.1 Baso % (Auto) 0.2 Neut # (Auto) 13.6 H Lymph # (Auto) 1.8 Walker # (Auto) 0.9 Eos # (Auto) 0.2 Baso # (Auto) 0.0 Immature Gran # (Auto) 0.1 Sodium 136.7 Potassium 3.75 Chloride 100.8 Carbon Dioxide 26.5 Anion Gap 13.15 Orders Category Date Time Status ADMIT PATIENT INPATIENT .TO [facility] (NON-MONITORED ADMISSION 01/17/20 14:02 Ordered BED) ADMIT PATIENT INPATIENT .TO [facility] (NON-MONITORED ADMISSION 01/17/20 14:02 Ordered BED) BLOOD CULTURE (ED ONLY) Stat LAB 01/17/20 12:50 Received CBC W/ AUTO DIFF Stat LAB 01/17/20 12:30 Completed ELECTROLYTES Stat LAB 01/17/20 12:30 Completed Ceftriaxone/D5w 2 gm Premix [Rocephin 2 gm/50 ml D5w] MEDS 01/17/20 12:20 Discontinued 2 gm in 50 ml IV ONCE Sodium Chloride 0.9% [Sodium Chloride] 1,000 ml MEDS 01/17/20 12:25 Discontinued IV BOLUS Medications Discontinued Medications Generic Name Dose Route Start Last Admin Trade Name Freq PRN Reason Stop Dose Admin CEFTRIAXONE/D5W 2 GM PREMIX 2 gm in 50 mls @ 75 mls/hr 01/17/20 12:20 01/17/20 13:21 Rocephin 2 Gm/50 Ml D5w IV 01/17/20 12:59 75 mls/hr ONCE STA Administration Protocol Sodium Chloride 1,000 mls @ 1,000 mls/hr 01/17/20 12:25 01/17/20 13:21 Sodium Chloride IV 01/17/20 13:24 1,000 mls/hr BOLUS STA Administration Vital Signs: Temp Pulse Resp BP Pulse Ox 01/17/20 12:06 97 F L 81 17 169/94 H 94 L Discharge Plan Discharge Discharge Problem: Edema of the upper extremity Prescriptions: No Action metformin 500 MG tablet 500 mg PO BID RF: 0 lisinopril 10 MG tablet 20 mg PO BID RF: 0 atorvastatin 80 MG tablet 80 mg PO DAILY RF: 0 tizanidine 4 MG tablet 4 mg PO DAILY RF: 0 aspirin [Ecotrin Low Strength] 81 MG tablet,delayed release (DR/EC) 81 mg PO DAILY RF: 0 metoprolol tartrate 25 MG tablet 25 mg PO BID RF: 0 hydrochlorothiazide 12.5 MG capsule 12.5 mg PO EVERY OTHER DAY RF: 0 gabapentin 300 MG capsule 300 mg PO TID RF: 0 hydrocodone-acetaminophen [[place]] 1 EACH tablet 1 ea PO Q6HR PRN (Reason: PAIN) Qty: 14 RF: 0 oxybutynin chloride 5 MG tablet 5 mg PO DAILY RF: 0 ED Provider: ERNESTO LEWIS
[2020-01-17 15:13] VITALS: BMI 38.4
[2020-01-17] MEDS ORDERED: NORCO 10-325 PO PRN (15:13)
[2020-01-17 16:41] LABS: ALANINE AMINOTRANSFERASE 12.5 U/L (0-35); ALBUMIN 3.89 g/dL (3.5-5.0); ALKALINE PHOSPHATASE 99.4 U/L (53-141); BILIRUBIN,TOTAL 0.44 mg/dL (0.2-1.3); CALCIUM 10.17 mg/dL (8.4-10.2); CARBON DIOXIDE 29.3 mmol/L (22-30.0); CREATININE 0.48 mg/dL (0.60-1.30); GLUCOSE 202.1 mg/dL (74-106); POTASSIUM 3.77 mmol/L (3.5-5.1); SODIUM 137.1 mmol/L (134.5-145); TOTAL PROTEIN 7.9 g/dL (6.3-8.2); URIC ACID 5.26 mg/dL (2.5-6.2)
[2020-01-17 17:12] LABS: THYROID STIMULATING HORMONE 2.27 uIU/L (0.465-4.68)
[2020-01-17 17:24] LABS: ERYTHROCYTE SEDIMENTATION RATE 52 mm/hr (0-20)
--- NOTE | 2020-01-17 18:19 | DI ---
EXAM: Three views of the left hand HISTORY: Pain, swelling COMPARISON: None available FINDINGS: No fracture or dislocation is identified. There is narrowing of the first CMC joint with marked linda inal osteophyte formation. Mild marginal osteophyte formation is seen at the first through third MCP joints. There is multifocal DIP joint space loss. No erosive changes are identified. Dorsal soft tissue swelling is seen. IMPRESSION: No acute osseous abnormality. Multifocal osteoarthritis, up to severe at the first CMC joint. Posterior soft tissue swelling.
[2020-01-17] MEDS: NEURONTIN PO SCH (20:18)
[2020-01-17] MEDS: LOPRESSOR PO SCH (20:18)
[2020-01-17] MEDS ORDERED: GLUCOPHAGE PO SCH (21:00)
[2020-01-17] MEDS: OXYCODONE PO PRN (21:55)
[2020-01-18] MEDS: OXYCODONE PO PRN ×2 (05:34→12:09)
[2020-01-18 05:46] LABS: BASOPHILS % (AUTO) 0.2 % (0.0-3.0); EOSINOPHILS # (AUTO) 0.2 K/ul (0.0-0.7); EOSINOPHILS % (AUTO) 1.1 % (0.0-7.0); HEMATOCRIT 41.3 % (37.0-47.0); HEMOGLOBIN 13.3 g/dl (12.0-16.0); IMMATURE GRANULOCYTE # (AUTO) 0.1 (0.0-1.0); IMMATURE GRANULOCYTE % (AUTO) 0.6 % (0.0-5.0); LYMPHOCYTES # (AUTO) 1.9 K/uL (0.60-3.4); LYMPHOCYTES % (AUTO) 12.1 (10.0-50.0); MEAN CORPUSCULAR HEMOGLOBIN 27.5 pg (27.0-31.0); MEAN CORPUSCULAR HGB CONC 32.2 (31.8-35.4); MEAN CORPUSCULAR VOLUME 85.5 fl (81.0-99.0); MONOCYTES # (AUTO) 1.1 K/uL (0.4-2.0); MONOCYTES % (AUTO) 7.2 (0-10); NEUTROPHILS # (AUTO) 12.3 K/ul (2.0-6.9); NEUTROPHILS % (AUTO) 78.8 % (42.2-75.2); PLATELET COUNT 326 10^3/uL (140-440); RDW COEFFICIENT OF VARIATION 15.3 % (11.6-14.8); RED BLOOD COUNT 4.83 10^6/ul (4.20-5.40)
[2020-01-18 05:59] LABS: ALANINE AMINOTRANSFERASE 12.4 U/L (0-35); ALBUMIN 3.59 g/dL (3.5-5.0); ALKALINE PHOSPHATASE 118.7 U/L (53-141); ASPARTATE AMINO TRANSFERASE 18.2 U/L (14-36); BILIRUBIN,TOTAL 0.39 mg/dL (0.2-1.3); CALCIUM 9.01 mg/dL (8.4-10.2); CARBON DIOXIDE 28.4 mmol/L (22-30.0); CHLORIDE 101.4 mmol/L (98-107); CREATININE 0.48 mg/dL (0.60-1.30); GLUCOSE 158.9 mg/dL (74-106); POTASSIUM 3.55 mmol/L (3.5-5.1); SODIUM 135.9 mmol/L (134.5-145); TOTAL PROTEIN 7.43 g/dL (6.3-8.2)
--- NOTE | 2020-01-18 08:42 | PCM.PROG ---
Attending Provider: ATTENDING PROVIDER: Dr. JACQUELIN MILTON This patient is seen with Jazmine Galindo, Nurse Practitioner. DATE OF SERVICE: 01/18/20 SUBJECTIVE: This 64 year old /WHITE F was hospitalized 01/17/20. The patient is resting comfortably in the chair. She continues to complain of left hand and wrist pain. Still with difficulty moving fingers and unable to make fist. Left forearm is swollen, tender with mild redness. There has been no fever. Blood cultures are positive for gram positive cocci, sensitivity is still pending. REVIEW OF SYSTEMS: CONSTITUTIONAL: No night sweats. No fatigue, malaise, lethargy. No fever or chills. HEENT: Eyes: No visual changes. No eye pain. No eye discharge. ENT: No runny nose. No epistaxis. No sinus pain. No odynophagia. No congestion. RESPIRATORY: No cough, no congestion. No hemoptysis. No shortness of breath. CARDIOVASCULAR: No angina symptoms. No CHF symptoms. No atypical chest pain for CAD. No palpitations. No orthopnea.. GASTROINTESTINAL: No abdominal pain. No nausea or vomiting. No diarrhea or constipation. No hematemesis. No hematochezia. GENITOURINARY: No urgency. No frequency. No dysuria. No hematuria. No obs tructive symptoms. No discharge. No pain. No significant abnormal bleeding. MUSCULOSKELETAL: No musculoskeletal pain; no joint swelling. Left wrist/hand pain. NEUROLOGICAL: Awake, alert, oriented to time, place and person. No headache. No neck pain. No syncope. No seizures. No dizziness. PSYCHIATRIC: Not anxious. No depression. No suicidal thoughts. No homicidal thoughts. SKIN: No rash. No lesions. No wounds. ENDOCRINE: No unexplained weight loss. No weight gain. HEMATOLOGIC/LYMPHATIC: No anemia. No purpura. No petechiae. No prolonged or excessive bleeding. No palpable lymph nodes. PHYSICAL EXAMINATION: GENERAL: The patient is awake, alert and oriented, sitting in chair in no distress. VITAL SIGNS: Temperature 98.0 F, Pulse 74, Respiratory Rate 19, BP 138/78, Pulse Ox 95% HEENT: Head normocephalic, atraumatic. Eyes: Extraocular muscles are intact. Pupils are equal, round and reactive to light and accommodation. Ears: No lesions. Nose appeared normal. Throat: No exudate or erythema. NECK: Supple. No JVD, no carotid bruit. No lymphadenopathy or thyromegaly. LUNGS: Diminished breath sounds. Clear to auscultation. Percussion note normal. Chest symmetrical. HEART: S1, S2, no S3. No murmurs. No cyanosis or clubbing. No ascites. Pulses: Dorsalis pedis and posterior tibial pulses +1 to +2 both sides. ABDOMEN: Soft. Non-tender. Bowel sounds active. No CVA tenderness. No mass felt. EXTREMITIES: No edema. Full range of motion of all extremities, equal. Left wrist/forearm mild edema erythema and tenderness. NEUROLOGIC: No focal deficit. Cranial nerves II through XII are grossly intact. No headache, no double vision or headache. SKIN: Not dry. Intact. Turgor-normal. LYMPHATIC: No palpable lymph nodes/no lymphedema. MUSCULOSKELETAL: Normal joints with no swelling. Muscle tone is normal. LAB REVIEW: 01/18/20 05:38 01/18/20 05:38 01/18/20 05:38: Sodium 135.9, Potassium 3.55, Chloride 101.4, Carbon Dioxide 28.4, Anion Gap 9.65, BUN 11.0, Creatinine 0.48 L, Estimated GFR (MDRD) 131.00, BUN/Creatinine Ratio 22.91, Glucose 158.9 H, Calcium 9.01, Total Bilirubin 0.39, AST 18.2, ALT 12.4, Alkaline Phosphatase 118.7, Total Protein 7.43, Albumin 3.59, Globulin 3.84, Albumin/Globulin Ratio 0.93 01/18/20 05:38: WBC 15.60 H, RBC 4.83, Hgb 13.3, Hct 41.3, MCV 85.5, MCH 27.5, MCHC 32.2, RDW Coeff of Brenda 15.3 H, Plt Count 326, Immature Gran % (Auto) 0.6, Neut % (Auto) 78.8 H, Lymph % (Auto) 12.1, [place] % (Auto) 7.2, Eos % (Auto) 1.1, Baso % (Auto) 0.2, Neut # (Auto) 12.3 H, Lymph # (Auto) 1.9, [place] # (Auto) 1.1, Eos # (Auto) 0.2, Baso # (Auto) 0.0, Immature Gran # (Auto) 0.1 01/17/20 12:30: Procalcitonin < 0.05 01/17/20 12:30: Hemoglobin A1c 8.17 H 01/17/20 12:30: Sodium 137.1, Potassium 3.77, Chloride 101.0, Carbon Dioxide 29.3, Anion Gap 10.57, BUN 12.0, Creatinine 0.48 L, Estimated GFR (MDRD) 131.00, BUN/Creatinine Ratio 25.00, Glucose 202.1 H, Uric Acid 5.26, Calcium 10.17, Total Bilirubin 0.44, AST 18.0, ALT 12.5, Alkaline Phosphatase 99.4, Total Prot ein 7.90, Albumin 3.89, Globulin 4.01, Albumin/Globulin Ratio 0.97, TSH 2.270 01/17/20 12:30: ESR 52 H 01/17/20 12:30: Sodium 136.7, Potassium 3.75, Chloride 100.8, Carbon Dioxide 26.5, Anion Gap 13.15 01/17/20 12:30: WBC 16.65 H, RBC 5.21, Hgb 14.3, Hct 45.0, MCV 86.4, MCH 27.4, MCHC 31.8, RDW Coeff of Brenda 15.3 H, Plt Count 353, Immature Gran % (Auto) 0.5, Neut % (Auto) 81.8 H, Lymph % (Auto) 11.1, [place] % (Auto) 5.3, Eos % (Auto) 1.1, Baso % (Auto) 0.2, Neut # (Auto) 13.6 H, Lymph # (Auto) 1.8, [place] # (Auto) 0.9, Eos # (Auto) 0.2, Baso # (Auto) 0.0, Immature Gran # (Auto) 0.1 ASSESSMENT: Please see below. 1. Left hand swelling 2. Positive blood cultures 3. Diabetes Mellitus type 2 4. Hypertension 5. Dyslipidemia PLAN: 1. CT left hand and wrist without 2. Continue IV Rocephine 3. Sensitivity pending 4. Elevate left upper extremity 5. 1cc Decadron IM today 6. U/A 7. Chest x-ray 8. Vancomycin pharmacy to dose 9. Repeat blood culture times two Plan and coordination of the patient's care discussed in the presence of Binder And Wrapper Packer and nurse. SCRIBED BY: ROBE PROCTOR, Special Needs Librarian scribed while in presence of service performed by Dr. Milton/Jazmine Galindo APRN on 01/18/20 ([id number])
[2020-01-18] MEDS: ROCEPHIN 2 GM/50 ML D5W 2 GM/50 ML BAG IV SCH (08:51)
[2020-01-18] MEDS: GLUCOPHAGE PO SCH ×2 (08:51→16:42)
[2020-01-18] MEDS: MYRBETRIQ PO SCH (08:51)
[2020-01-18] MEDS: NEURONTIN PO SCH ×3 (08:52→20:10)
[2020-01-18] MEDS: ZANAFLEX PO SCH (08:52)
[2020-01-18] MEDS: ASPIRIN EC PO SCH (08:52)
[2020-01-18] MEDS: LOPRESSOR PO SCH ×2 (08:52→20:10)
[2020-01-18] MEDS: LIPITOR PO SCH (08:52)
[2020-01-18] MEDS: DECADRON 4 MG/ML SDV IM SCH (08:53)
[2020-01-18] MEDS: VANCOMYCIN 1.5 GRAM/300 ML PREMIX 1.5 GM/300 ML BAG IV SCH ×2 (09:37→20:10)
[2020-01-18 10:41] LABS: BILIRUBIN,URINE Negative (NEGATIVE); CLARITY,URINE Clear (CLEAR); COLOR,URINE Yellow (YELLOW); GLUCOSE, URINE (UA) Negative (NEGATIVE); KETONES,URINE Negative (NEGATIVE); LEUKOCYTE ESTERASE ,URINE Negative (NEGATIVE); NITRITE,URINE Negative (NEGATIVE); PROTEIN,URINE Trace (NEGATIVE); URINE, BLOOD Trace-intact (NEGATIVE); UROBILINOGEN,URINE 0.2 (0.2)
[2020-01-18 10:45] LABS: SQUAMOUS EPITHELIAL CELL,UR 20-30 (0-5)
[2020-01-18 10:48] LABS: RENAL EPITHELIAL CELLS,URINE 0-2 (NOT PRESENT)
--- NOTE | 2020-01-18 13:02 | DI ---
EXAM: Chest two view, frontal and lateral views. HISTORY: Positive blood culture. COMPARISON: 04/27/2017. FINDINGS: Cardiac silhouette is normal in size. There is no pulmonary vascular congestion. There i s mild peribronchial thickening which is stable suggesting chronic airways inflammation. Calcified g ranulomatous changes noted. No focal consolidation, pleural effusion or pneumothorax is seen. The o sseous structures are within normal limits for the patient's age. Old right rib fractures again note d. Clips seen in the upper abdomen. IMPRESSION: No acute cardiopulmonary process. Stable mild chronic airways inflammation.
--- NOTE | 2020-01-18 13:03 | CT ---
EXAM: CT of the left hand without contrast History: Left hand pain and swelling. Comparison: Left hand radiograph 01/17 2020 Technique: Multiplanar CT images through the left hand were obtained without the administration of I V contrast Findings: There is some motion artifact. No fractures are seen. There is radial subluxation of the first MCP joint which is related to arthritis. There is chondrocalcinosis seen at the carpus. There is severe narrowing of the first carpal metacarpal joint with marginal sclerosis, osteophyte formati on and large marginal cysts at the base of the first metacarpal. Mild to moderate polyarticular join t space narrowing seen elsewhere. There is dorsal soft tissue swelling of the hand. Impression: 1. No fractures are identified within limitations of the motion artifact. 2. Radial subluxation of the first MCP joint related to arthritis. 3. Severe arthritis of the first carpal metacarpal joint which is a combination of crystal depositio n arthropathy and osteoarthritis. 4. Chondrocalcinosis. 5. Dorsal soft tissue swelling of the hand
--- NOTE | 2020-01-18 13:04 | CT ---
EXAM: CT left forearm without contrast HISTORY: Swelling and warmth. COMPARISON: CT left hand same day. TECHNIQUE: Serial axial images of the left forearm without contrast. These were viewed in multiple planes. FINDINGS: There is no lytic or blastic lesion. There is no fracture or dislocation. There is degene rative change of the wrist and ankle with mild narrowing and osteophyte formation. There is subcutan eous ground-glass throughout the forearm. There is no focal fluid collection or abscess. IMPRESSION: There is subcutaneous edema with no focal fluid collection or abscess. There is degener ative disease of the elbow and wrist.
[2020-01-18] MEDS: NICODERM 21 MG TD SCH (14:12)
[2020-01-19 05:44] LABS: BASOPHILS % (AUTO) 0.2 % (0.0-3.0); EOSINOPHILS # (AUTO) 0.1 K/ul (0.0-0.7); EOSINOPHILS % (AUTO) 0.5 % (0.0-7.0); HEMATOCRIT 39.6 % (37.0-47.0); HEMOGLOBIN 12.5 g/dl (12.0-16.0); IMMATURE GRANULOCYTE # (AUTO) 0.1 (0.0-1.0); IMMATURE GRANULOCYTE % (AUTO) 0.7 % (0.0-5.0); LYMPHOCYTES # (AUTO) 1.8 K/uL (0.60-3.4); LYMPHOCYTES % (AUTO) 15.2 (10.0-50.0); MEAN CORPUSCULAR HEMOGLOBIN 27.4 pg (27.0-31.0); MEAN CORPUSCULAR HGB CONC 31.6 (31.8-35.4); MEAN CORPUSCULAR VOLUME 86.7 fl (81.0-99.0); MONOCYTES # (AUTO) 0.9 K/uL (0.4-2.0); MONOCYTES % (AUTO) 7.3 (0-10); NEUTROPHILS # (AUTO) 9.1 K/ul (2.0-6.9); NEUTROPHILS % (AUTO) 76.1 % (42.2-75.2); PLATELET COUNT 325 10^3/uL (140-440); RDW COEFFICIENT OF VARIATION 15.4 % (11.6-14.8); RED BLOOD COUNT 4.57 10^6/ul (4.20-5.40); WHITE BLOOD COUNT 12.01 K/ul (4.6-10.2)
[2020-01-19 05:55] LABS: ALANINE AMINOTRANSFERASE 14.7 U/L (0-35); ALBUMIN 3.43 g/dL (3.5-5.0); ALKALINE PHOSPHATASE 115.7 U/L (53-141); ASPARTATE AMINO TRANSFERASE 18.3 U/L (14-36); BILIRUBIN,TOTAL 0.26 mg/dL (0.2-1.3); BLOOD UREA NITROGEN 14.5 mg/dL (7-17); CALCIUM 9.09 mg/dL (8.4-10.2); CARBON DIOXIDE 30.7 mmol/L (22-30.0); CHLORIDE 104.5 mmol/L (98-107); CREATININE 0.54 mg/dL (0.60-1.30); GLUCOSE 165.5 mg/dL (74-106); POTASSIUM 3.58 mmol/L (3.5-5.1); SODIUM 138.6 mmol/L (134.5-145); TOTAL PROTEIN 7.22 g/dL (6.3-8.2)
[2020-01-19] MEDS: DECADRON 4 MG/ML SDV IM SCH (08:26)
[2020-01-19] MEDS: VANCOMYCIN 1.5 GRAM/300 ML PREMIX 1.5 GM/300 ML BAG IV SCH ×2 (08:26→20:05)
[2020-01-19] MEDS: NICODERM 21 MG TD SCH (08:27)
[2020-01-19] MEDS: MYRBETRIQ PO SCH (08:28)
[2020-01-19] MEDS: NEURONTIN PO SCH ×3 (08:28→20:05)
[2020-01-19] MEDS: ASPIRIN EC PO SCH (08:28)
[2020-01-19] MEDS: OXYCODONE PO PRN ×3 (08:28→21:33)
[2020-01-19] MEDS: LIPITOR PO SCH (08:28)
[2020-01-19] MEDS: HYDROCHLOROTHIAZIDE PO SCH (08:29)
[2020-01-19] MEDS: GLUCOPHAGE PO SCH ×2 (08:29→17:01)
[2020-01-19] MEDS: ZANAFLEX PO SCH (08:29)
[2020-01-19] MEDS: LOPRESSOR PO SCH ×2 (08:30→20:07)
--- NOTE | 2020-01-19 08:39 | PCM.PROG ---
Attending Provider: ATTENDING PROVIDER: Dr. JACQUELIN MILTON This patient is seen with Jazmine Galindo, Nurse Practitioner. DATE OF SERVICE: 01/19/20 SUBJECTIVE: This 64 year old /WHITE F was hospitalized 01/17/20. The patient is resting in the bed comfortably. She continues to complain of left hand pain. Swelling has mildly improved. She has remained fever free. Has a good appetite. WBC has improved. We will continue IV antibiotics. We will order 2D echo. REVIEW OF SYSTEMS: CONSTITUTIONAL: No night sweats. No fatigue, malaise, lethargy. No fever or chills. HEENT: Eyes: No visual changes. No eye pain. No eye discharge. ENT: No runny nose. No epistaxis. No sinus pain. No odynophagia. No congestion. RESPIRATORY: No cough, no congestion. No hemoptysis. No shortness of breath. CARDIOVASCULAR: No angina symptoms. No CHF symptoms. No atypical chest pain for CAD. No palpitations. No orthopnea.. GASTROINTESTINAL: No abdominal pain. No nausea or vomiting. No diarrhea or constipation. No hematemesis. No hematochezia. GENITOURINARY: No urgency. No frequency. No dysuria. No hematuria. No obstructive symptoms. No discharge. No pain. No significant abnormal bleeding. MUSCULOSKELETAL: No musculoskeletal pain; no joint swelling. Left hand pain. NEUROLOGICAL: Awake, alert, oriented to time, place and person. No headache. No neck pain. No syncope. No seizures. No dizziness. PSYCHIATRIC: Not anxious. No depression. No suicidal thoughts. No homicidal thoughts. SKIN: No rash. No lesions. No wounds. ENDOCRINE: No unexplained weight loss. No weight gain. HEMATOLOGIC/LYMPHATIC: No anemia. No purpura. No petechiae. No prolonged or excessive bleeding. No palpable lymph nodes. PHYSICAL EXAMINATION: GENERAL: The patient is awake, alert and oriented, lying/sitting in bed in no distress. VITAL SIGNS: Temperature 98.1 F, Pulse 71, Respiratory Rate 18, BP 134/81, Pulse Ox 99% HEENT: Head normocephalic, atraumatic. Eyes: Extraocular muscles are intact. Pupils are equal, round and reactive to light and accommodation. Ears: No lesions. Nose appeared normal. Throat: No exudate or erythema. NECK: Supple. No JVD, no carotid bruit. No lymphadenopathy or thyromegaly. LUNGS: Diminished breath sounds. Clear to auscultation. Percussion note normal. Chest symmetrical. HEART: S1, S2, no S3. No murmurs. No cyanosis or clubbing. No ascites. Pulses: Dorsalis pedis and posterior tibial pulses +1 to +2 both sides. ABDOMEN: Soft. Non-tender. Bowel sounds active. No CVA tenderness. No mass felt. EXTREMITIES: No edema. Full range of motion of all extremities, equal. Left hand with mild edema, mild erythema NEUROLOGIC: No focal deficit. Cranial nerves II through XII are grossly intact. No headache, no double vision or headache. SKIN: Not dry. Intact. Turgor-normal. LYMPHATIC: No palpable lymph nodes/no lymphedema. MUSCULOSKELETAL: Normal joints with no swelling. Muscle tone is normal. LAB REVIEW: 01/19/20 04:45 01/19/20 04:45 01/19/20 04:45: Sodium 138.6, Potassium 3.58, Chloride 104.5, Carbon Dioxide 30.7 H, Anion Gap 6.98, BUN 14.5, Creatinine 0.54 L, Estimated GFR (MDRD) 114.00, BUN/Creatinine Ratio 26.85, Glucose 165.5 H, Calcium 9.09, Total Bilirubin 0.26, AST 18.3, ALT 14.7, Alkaline Phosphatase 115.7, Total Protein 7.22, Albumin 3.43 L, Globulin 3.79, Albumin/Globulin Ratio 0.90 01/19/20 04:45: WBC 12.01 H, RBC 4.57, Hgb 12.5, Hct 39.6, MCV 86.7, MCH 27.4, MCHC 31.6 L, RDW Coeff of Brenda 15.4 H, Plt Count 325, Immature Gran % (Auto) 0.7, Neut % (Auto) 76.1 H, Lymph % (Auto) 15.2, [place] % (Auto) 7.3, Eos % (Auto) 0.5, Baso % (Auto) 0.2, Neut # (Auto) 9.1 H, Lymph # (Auto) 1.8, [place] # (Auto) 0.9, Eos # (Auto) 0.1, Baso # (Auto) 0.0, Immature Gran # (Auto) 0.1 01/18/20 10:30: Urine Color Yellow, Urine Clarity Clear, Urine pH 7.0, Ur Specif ic [place] 1.015, Urine Protein Trace H, Urine Glucose (UA) Negative, Urine Ketones Negative, Urine Blood Trace-intact H, Urine Nitrite Negative, Urine Bilirubin Negative, Urine Urobilinogen 0.2, Ur Leukocyte Esterase Negative, Urine Microscopic RBC 2-5, Ur Squamous Epith Cells 20-30, Ur Renal Epithelial Cell 0-2 01/17/20 12:30: C-Reactive Prot, Quant 75 H ASSESSMENT: Please see below. 1. Left hand swelling 2. Positive blood cultures 3. Diabetes Mellitus type 2 4. Hypertension 5. Dyslipidemia PLAN: 1. 2D echo 2. Continue IV antibiotics 3. Elevate left upper extremity Plan and coordination of the patient's care discussed in the presence of Senior Sales Compensation Analyst and nurse. SCRIBED BY: Stacy WEEMS scribed while in presence of service performed by Dr. Milton/Jazmine Galindo APRN on 01/19/20 ([id number])
[2020-01-19] MEDS: ROCEPHIN 2 GM/50 ML D5W 2 GM/50 ML BAG IV SCH (10:42)
[2020-01-20 05:25] LABS: BASOPHILS % (AUTO) 0.4 % (0.0-3.0); EOSINOPHILS # (AUTO) 0.1 K/ul (0.0-0.7); EOSINOPHILS % (AUTO) 0.5 % (0.0-7.0); HEMATOCRIT 39.6 % (37.0-47.0); HEMOGLOBIN 12.5 g/dl (12.0-16.0); IMMATURE GRANULOCYTE # (AUTO) 0.1 (0.0-1.0); LYMPHOCYTES # (AUTO) 2.2 K/uL (0.60-3.4); MEAN CORPUSCULAR HEMOGLOBIN 27.4 pg (27.0-31.0); MEAN CORPUSCULAR HGB CONC 31.6 (31.8-35.4); MEAN CORPUSCULAR VOLUME 86.8 fl (81.0-99.0); MONOCYTES # (AUTO) 0.7 K/uL (0.4-2.0); MONOCYTES % (AUTO) 6.6 (0-10); NEUTROPHILS # (AUTO) 7.8 K/ul (2.0-6.9); NEUTROPHILS % (AUTO) 71.5 % (42.2-75.2); PLATELET COUNT 361 10^3/uL (140-440); RDW COEFFICIENT OF VARIATION 15.5 % (11.6-14.8); RED BLOOD COUNT 4.56 10^6/ul (4.20-5.40); WHITE BLOOD COUNT 10.83 K/ul (4.6-10.2)
[2020-01-20 05:37] LABS: ALANINE AMINOTRANSFERASE 14.5 U/L (0-35); ALBUMIN 3.64 g/dL (3.5-5.0); ASPARTATE AMINO TRANSFERASE 19.5 U/L (14-36); BILIRUBIN,TOTAL 0.19 mg/dL (0.2-1.3); BLOOD UREA NITROGEN 16.4 mg/dL (7-17); CALCIUM 9.33 mg/dL (8.4-10.2); CARBON DIOXIDE 28.4 mmol/L (22-30.0); CREATININE 0.53 mg/dL (0.60-1.30); GLUCOSE 169.5 mg/dL (74-106); POTASSIUM 3.73 mmol/L (3.5-5.1); SODIUM 139.3 mmol/L (134.5-145); TOTAL PROTEIN 7.21 g/dL (6.3-8.2)
[2020-01-20] MEDS: OXYCODONE PO PRN ×3 (07:43→22:32)
[2020-01-20] MEDS: ROCEPHIN 2 GM/50 ML D5W 2 GM/50 ML BAG IV SCH (08:41)
--- NOTE | 2020-01-20 08:47 | HP ---
DATE OF SERVICE: 01/17/20 HISTORY OF PRESENT ILLNESS: 64-year-old white female who presents to the emergency room with left hand, wrist swelling and pain. She denies any trauma. PAST MEDICAL HISTORY: Cellulitis of the lower extremities Coronary artery disease By CT, 6 mm left lower lobe pulmonary nodule Urinary incontinence Polycythemia secondary to smoking Degenerative disk disease of the spine, sees Dr. Na Shi Bilateral foraminal stenosis, L2-L5, L5-S1 Right knee osteoarthritis Diabetic neuropathy GERD Coronary artery disease History of [place] Smoker C-spine degenerative joint disease Diabetes mellitus type 2 (previous A1C was 13.2) Hypertension LVH History of noncompliance with diet, lifestyle, medications and followup PAST SURGICAL HISTORY: Coronary artery disease with stent Last colonoscopy was 02/02 - refused a repeat Last mammogram was 09/06, refused repeat REVIEW OF SYSTEMS: CONSTITUTIONAL: No night sweats. No fatigue, malaise, lethargy. No fever or chills. HEENT: Eyes: No visual changes. No eye pain. No eye discharge. ENT: No runny nose. No epistaxis. No sinus pain. No sore throat. No odynophagia. No ear pain. No congestion. RESPIRATORY: No cough, no congestion. No hemoptysis. No shortness of breath. CARDIOVASCULAR: No angina symptoms. No CHF symptoms. No atypical chest pain for CAD. No palpitations. No PND. No orthopnea. GASTROINTESTINAL: No abdominal pain. No nausea or vomiting. No diarrhea or constipation. No hematemesis. No hematochezia. GENITOURINARY: No urgency. No frequency. No dysuria. No hematuria. No obstructive symptoms. No discharge. No pain. No significant abnormal bleeding. MUSCULOSKELETAL: Positive for left hand and wrist swelling and pain along with redness. NEUROLOGICAL: No headache. No neck pain. No syncope. No seizures. No dizziness. PSYCHIATRIC: Not anxious. No depression. No suicidal thoughts. No homicidal thoughts. SKIN: No rash. No lesions. No wounds. ENDOCRINE: No unexplained weight loss. No weight gain. HEMATOLOGIC/LYMPHATIC: No anemia. No purpura. No petechiae. No prolonged or excessive bleeding. No palpable lymph nodes. PERSONAL/FAMILY/SOCIAL HISTORY: She is a smoker. She is noncompliant. No alcohol or ilicit drug use. She has poor personal hygeine. MEDICATIONS: Metformin 1,000 mg p.o. b.i.d. Tizanidine 4 mg p.o. daily Metoprolol Tartrate 25 mg p.o. b.i.d. Atorvastatin 80 mg p.o. daily Aspirin 81 mg p.o. daily Hydrocodone-acetaminophen one each p.o. q.6h p.r.n. Hydrochlorothiazide 12.5 mg p.o. every other day Gabapentin 300 mg p.o. t.i.d. Mirabegron 50 mg p.o. daily Semaglutide 1 mg subcut weekly ALLERGIES: NKDA PHYSICAL EXAMINATION: VITAL SIGNS: Temperature 97, heart rate 81, respirations 17, blood pressure 169/94, pulse ox 94% on room air. HEENT: Head normocephalic, atraumatic. Eyes: Extraocular muscles are intact. Pupils are equal, round and reactive to light and accommodation. Ears: No lesions. Nose appeared normal. Throat: No exudate or erythema. NECK: Supple. No JVD, no carotid bruit. No lymphadenopathy or thyromegaly. LUNGS: Diminished breath sounds bilaterally. Clear to auscultation. Percussion note normal. Chest symmetrical. HEART: S1, S2, no S3. No murmur. No cyanosis or clubbing. No ascites. Pulses: Dorsalis pedis and posterior tibial pulses +1 to +2 bilaterally. ABDOMEN: Soft. Nontender. Bowel sounds active. No CVA tenderness. No mass felt. EXTREMITIES: No edema. Full range of motion of all extremities, equal. NEUROLOGIC: No focal deficit. Cranial nerves II through XII are grossly intact. No headache, no double vision or headache. SKIN: Warm, dry. Intact. Turgor - normal. LYMPHATIC: No palpable lymph nodes/no lymphedema. MUSCULOSKELETAL: Left wrist, dorsal aspect has redness and swelling. There is some swelling noted to the under side of the left arm extending up to the elbow. She does describe tenderness, has decreased range of motion. No wounds on any other part of her body. IMAGING/LABS: No imaging of the extremity was done in the emergency room. White count 16.65, hemoglobin 14.3, hematocrit 45, platelets 353. Sodium 136, potassium 3.75, no BUN or creatinine was done in the emergency room. ASSESSMENT: 1. Cellulitis of the left wrist. 2. Leukocytosis. 3. Noncompliance with diet, lifestyle and medications. 4. Diabetes mellitus Type 2, uncontrolled. PLAN: 1. Will admit as inpatient. 2. Routine telemetry orders. 3. CBC, CMP daily. 4. Blood cultures were done in the ER times two. 5. Will start Rocephin 1 gm IV daily. 6. X-ray of the left wrist if it is inconclusive will do CT scan of the left upper extremity. 7. Continue all home medications, sliding scale for glucose. 8. Diabetic diet. 9. 1 cc Decadron IM today. 10. Will follow closely. TIME SPENT: More than 70 minutes. MTDD
[2020-01-20] MEDS: LIPITOR PO SCH (08:54)
[2020-01-20] MEDS: MYRBETRIQ PO SCH (08:54)
[2020-01-20] MEDS: NEURONTIN PO SCH ×3 (08:55→20:43)
[2020-01-20] MEDS: ASPIRIN EC PO SCH (08:55)
[2020-01-20] MEDS: GLUCOPHAGE PO SCH ×2 (08:55→17:10)
[2020-01-20] MEDS: LOPRESSOR PO SCH ×2 (08:55→20:43)
[2020-01-20] MEDS: ZANAFLEX PO SCH (08:55)
[2020-01-20] MEDS: NICODERM 21 MG TD SCH (08:56)
[2020-01-20] MEDS: VANCOMYCIN 1.5 GRAM/300 ML PREMIX 1.5 GM/300 ML BAG IV SCH ×2 (09:50→20:43)
--- NOTE | 2020-01-20 13:54 | PN ---
DATE OF SERVICE: 01/19/20 SUBJECTIVE: The patient was seen and examined with the nurse practitioner. The swelling of the left wrist seems to be much less than what it was on admission according to the patient. X-ray was negative for fracture. The patient's uric acid level was normal. The patient is on IV antibiotics. The patient's blood culture is positive. I will recheck the blood cultures again. The patient's WBC count is still high but less than before. Will undergo echocardiogram to rule out any endocarditis and to evaluate LV function. CONDITION: Stable. TIME SPENT: More than 30 minutes. Plan and coordination of the patient's care discussed in the presence of nurse. BINDU
[2020-01-20] MEDS ORDERED: MILK OF MAGNESIA PO PRN (17:13)
[2020-01-21 05:38] LABS: BASOPHILS # (AUTO) 0.1 K/uL (0-0.2); BASOPHILS % (AUTO) 0.7 % (0.0-3.0); EOSINOPHILS # (AUTO) 0.1 K/ul (0.0-0.7); EOSINOPHILS % (AUTO) 1.2 % (0.0-7.0); HEMOGLOBIN 13.3 g/dl (12.0-16.0); IMMATURE GRANULOCYTE # (AUTO) 0.1 (0.0-1.0); IMMATURE GRANULOCYTE % (AUTO) 0.7 % (0.0-5.0); LYMPHOCYTES # (AUTO) 2.4 K/uL (0.60-3.4); LYMPHOCYTES % (AUTO) 22.8 (10.0-50.0); MEAN CORPUSCULAR HEMOGLOBIN 26.9 pg (27.0-31.0); MEAN CORPUSCULAR HGB CONC 30.9 (31.8-35.4); MONOCYTES # (AUTO) 0.6 K/uL (0.4-2.0); MONOCYTES % (AUTO) 6.1 (0-10); NEUTROPHILS # (AUTO) 7.1 K/ul (2.0-6.9); NEUTROPHILS % (AUTO) 68.5 % (42.2-75.2); PLATELET COUNT 349 10^3/uL (140-440); RDW COEFFICIENT OF VARIATION 15.4 % (11.6-14.8); RED BLOOD COUNT 4.94 10^6/ul (4.20-5.40)
[2020-01-21 05:48] VITALS: BP 153/88; TEMP 98.5
[2020-01-21 05:54] LABS: ALANINE AMINOTRANSFERASE 20.2 U/L (0-35); ALBUMIN 3.57 g/dL (3.5-5.0); ALKALINE PHOSPHATASE 108.2 U/L (53-141); BILIRUBIN,TOTAL 0.19 mg/dL (0.2-1.3); CALCIUM 8.69 mg/dL (8.4-10.2); CARBON DIOXIDE 28.9 mmol/L (22-30.0); CHLORIDE 105.3 mmol/L (98-107); CREATININE 0.5 mg/dL (0.60-1.30); GLUCOSE 144.9 mg/dL (74-106); POTASSIUM 3.67 mmol/L (3.5-5.1); SODIUM 139.5 mmol/L (134.5-145); TOTAL PROTEIN 7.12 g/dL (6.3-8.2)
[2020-01-21] MEDS ORDERED: CITRATE OF MAGNESIA PO STA (08:17)
--- NOTE | 2020-01-21 08:30 | PCM.PROG ---
Attending Provider: ATTENDING PROVIDER: Dr. JACQUELIN MILTON This patient is seen with Jazmine Galindo, Nurse Practitioner. DATE OF SERVICE: 01/21/20 SUBJECTIVE: This 64 year old /WHITE F was hospitalized 01/17/20. The patient is in the bed resting comfortably. She is feeling much better. Hand swelling has resolved and tenderness has diminished. The patient has not had a bowel movement in couple of day. We will give 1/2 bottle magnesium citrate. We will give Septra BID for 7 days. The patient is stable for discharge. We will resume Help at Home. We will give Doxycycline 100mg daily for 7 days. REVIEW OF SYSTEMS: CONSTITUTIONAL: No night sweats. No fatigue, malaise, lethargy. No fever or chills. HEENT: Eyes: No visual changes. No eye pain. No eye discharge. ENT: No runny nose. No epistaxis. No sinus pain. No odynophagia. No congestion. RESPIRATORY: No cough, no congestion. No hemoptysis. No shortness of breath. CARDIOVASCULAR: No angina symptoms. No CHF symptoms. No atypical chest pain for CAD. No palpitations. No orthopnea.. GASTROINTESTINAL: No abdominal pain. No nausea or vomiting. No diarrhea or constipation. No hematemesis. No hematochezia. GENITOURINARY: No urgency. No frequency. No dysuria. No hematuria. No obstructive symptoms. No discharge. No pain. No significant abnormal bleeding. MUSCULOSKELETAL: No musculoskeletal pain; no joint swelling. Left hand swelling, improved. Left hand pain, improved. NEUROLOGICAL: Awake, alert, oriented to time, place and person. No headache. No neck pain. No syncope. No seizures. No dizziness. PSYCHIATRIC: Not anxious. No depression. No suicidal thoughts. No homicidal thoughts. SKIN: No rash. No lesions. No wounds. ENDOCRINE: No unexplained weight loss. No weight gain. HEMATOLOGIC/LYMPHATIC: No anemia. No purpura. No petechiae. No prolonged or excessive bleeding. No palpable lymph nodes. PHYSICAL EXAMINATION: GENERAL: The patient is awake, alert and oriented, lying in bed in no distress. VITAL SIGNS: Temperature 98.5 F, Pulse 73, Respiratory Rate 18, BP 153/88, Pulse Ox 97% HEENT: Head normocephalic, atraumatic. Eyes: Extraocular muscles are intact. Pupils are equal, round and reactive to light and accommodation. Ears: No lesions. Nose appeared normal. Throat: No exudate or erythema. NECK: Supple. No JVD, no carotid bruit. No lymphadenopathy or thyromegaly. LUNGS: Diminished breath sounds. Clear to auscultation. Percussion note normal. Chest symmetrical. HEART: S1, S2, no S3. No murmurs. No cyanosis or clubbing. No ascites. Pulses: Dorsalis pedis and posterior tibial pulses +1 to +2 both sides. ABDOMEN: Soft. Non-tender. Bowel sounds active. No CVA tenderness. No mass felt. EXTREMITIES: No edema. Full range of motion of all extremities, equal. Left hand swelling, improved. Left hand pain, improved. NEUROLOGIC: No focal deficit. Cranial nerves II through XII are grossly intact. No headache, no double vision or headache. SKIN: Not dry. Intact. Turgor-normal. LYMPHATIC: No palpable lymph nodes/no lymphedema. MUSCULOSKELETAL: Normal joints with no swelling. Muscle tone is normal. LAB REVIEW: 01/21/20 04:53 01/21/20 04:53 01/21/20 04:53: Sodium 139.5, Potassium 3.67, Chloride 105.3, Carbon Dioxide 28.9, Anion Gap 8.97, BUN 17.0, Creatinine 0.50 L, Estimated GFR (MDRD) 125.00, BUN/Creatinine Ratio 34.00, Glucose 144.9 H, Calcium 8.69, Total Bilirubin 0.19 L, AST 21.0, ALT 20.2, Alkaline Phosphatase 108.2, Total Protein 7.12, Albumin 3 .57, Globulin 3.55, Albumin/Globulin Ratio 1.00 01/21/20 04:53: WBC 10.40 H, RBC 4.94, Hgb 13.3, Hct 43.0, MCV 87.0, MCH 26.9 L, MCHC 30.9 L, RDW Coeff of Brenda 15.4 H, Plt Count 349, Immature Gran % (Auto) 0.7, Neut % (Auto) 68.5, Lymph % (Auto) 22.8, [place] % (Auto) 6.1, Eos % (Auto) 1.2, Baso % (Auto) 0.7, Neut # (Auto) 7.1 H, Lymph # (Auto) 2.4, [place] # (Auto) 0.6, Eos # (Auto) 0.1, Baso # (Auto) 0.1, Immature Gran # (Auto) 0.1 01/20/20 08:35: Vancomycin Trough 11.575 ASSESSMENT: Please see below. 1. Left hand swelling, improved 2. Positive blood cultures 3. Diabetes Mellitus type 2 4. Hypertension 5. Dyslipidemia PLAN: 1. Septra BID for 7 days 2. Doxycycline 100mg daily for 7 days 3. 1/2 bottle Magnesium Citrate 4. The patient is stable for discharge 5. Resume Help at Home 6. Followup in the office in one week. Plan and coordination of the patient's care discussed in the presence of Vice President Medical Affairs and nurse. SCRIBED BY: Stacy WEEMS scribed while in presence of service performed by Dr. Milton/Jazmine Galindo APRN on 01/21/20 ([id number])
[2020-01-21] MEDS: ROCEPHIN 2 GM/50 ML D5W 2 GM/50 ML BAG IV SCH (08:40)
[2020-01-21] MEDS: MYRBETRIQ PO SCH (08:40)
[2020-01-21] MEDS: HYDROCHLOROTHIAZIDE PO SCH (08:41)
[2020-01-21] MEDS: LOPRESSOR PO SCH (08:41)
[2020-01-21] MEDS: LIPITOR PO SCH (08:41)
[2020-01-21] MEDS: NEURONTIN PO SCH (08:41)
[2020-01-21] MEDS: ASPIRIN EC PO SCH (08:41)
[2020-01-21] MEDS: GLUCOPHAGE PO SCH (08:41)
[2020-01-21] MEDS: ZANAFLEX PO SCH (08:42)
[2020-01-21] MEDS: NICODERM 21 MG TD SCH (08:54)
[2020-01-21] MEDS ORDERED: VANCOMYCIN 1.5 GRAM/300 ML PREMIX 1.5 GM/300 ML BAG IV SCH (09:00)
[2020-01-21] MEDS ORDERED: ROCEPHIN 2 GM/50 ML D5W 2 GM/50 ML BAG IV SCH (09:00)
[2020-01-21] MEDS ORDERED: NON-FORMULARY MEDICATION (Semaglutide [Ozempic] 1 mg/dose (2 mg/1.5 mL) Pen Injector) SUBCUT SCH (09:00)
[2020-01-21] MEDS: VANCOMYCIN 1.5 GRAM/300 ML PREMIX 1.5 GM/300 ML BAG IV SCH (10:01)
--- NOTE | 2020-01-21 11:07 | CM.DICTOOL ---
ADMISSION: 01/17/20 14:26 DISCHARGE: JANUARY 21, 2020 DATE OF SERVICE: 01/21/20 FINAL DIAGNOSIS CELLULITIS, LEFT HAND SEPSIS, STAPH HOMINIS SEVERE ARTHRITIS, FIRST CARPAL METACARPAL JOINT DIABETES TYPE 2 (A1C 8.17) HYPERTENSION DYSLIPIDEMIA NEUROPATHY GERD LVH BILATERAL PULMONARY NODULE, PER CT (03/2019) CAD, S/P STENT APPLICATION DEGENERATIVE DISC DISEASE, LEFT ELBOW, LEFT WRIST OSTEOARTHRITIS, RIGHT SHOULDER, RIGHT KNEE, LEFT HAND CHRONIC PAIN, PAIN MANAGEMENT (DR. NASCIMENTO) RIB FRACTURES, RIGHT (OLD) LEFT RENAL CALCULUS, NON-OBSTRUCTING PER CT TOBACCO USE NON-COMPLIANCE LIFE-STYLE, MEDICATIONS AND FOLLOW-UP CHOLECYSTECTOMY LAST VITALS Temp Pulse Resp BP Pulse Ox 98.5 F 73 18 153/88 H 97 01/21/20 05:44 01/21/20 05:44 01/21/20 05:44 01/21/20 05:44 01/21/20 05:44 TAKE THESE MEDICATIONS AT HOME Aspirin (Aspirin 81 Mg Tablet.) 81 mg PO DAILYWM [facility] Last Admin: 01/21/20 08:41 Dose: 81 mg Documented by: Atorvastatin Calcium (Atorvastatin Calcium 20 Mg Tablet) 80 mg PO DAILY [facility] Last Admin: 01/21/20 08:41 Dose: 80 mg Documented by: Gabapentin (Gabapentin 300 Mg Capsule) 300 mg PO TID [facility] Last Admin: 01/21/20 08:41 Dose: 300 mg Documented by: Hydrochlorothiazide (Hydrochlorothiazide 25 Mg Tablet) 12.5 mg PO EVERY OTHER DAY [facility] Last Admin: 01/21/20 08:41 Dose: 12.5 mg Metformin HCl (Metformin Hcl 500 Mg Tablet) 1,000 mg PO BIDWM [facility] Last Admin: 01/21/20 08:41 Dose: 1,000 mg Documented by: Metoprolol Tartrate (Metoprolol Tartrate 25 Mg Tablet) 25 mg PO BID [facility] Last Admin: 01/21/20 08:41 Dose: 25 mg Documented by: Mirabegron (Mirabegron 25 Mg Tab.Er.24h) 50 mg PO DAILY [facility] Last Admin: 01/21/20 08:40 Dose: 50 mg Documented by: Non-Formulary Medication (Semaglutide [Ozempic]) 1 mg SUBCUT WEEKLY [facility] Last Admin: 01/21/20 08:55 Dose: Not Given Documented by: HYDROCODONE-ACETAMINOPHEN 10-325 Q6H PRN PRN Reason: Pain Last Admin: Documented by: Tizanidine HCl (Tizanidine Hcl 4 Mg Tablet) 4 mg PO DAILY [facility] Last Admin: 01/21/20 08:42 Dose: 4 mg Documented by: ALLERGIES No Known Allergies Allergy (Verified 01/17/20 12:19) DISCONTINUED MEDICATIONS NONE NEW PRESCRIPTIONS: SEPTRA 1 TABLET BID FOR 7 DAYS DOXYCYCLINE 100 MG 1 DAILY FOR 7 DAYS SMOKING: SMOKING DISCOURAGED DISEASE SPECIFIC EDUCATION: APPOINTMENT NEW MEDICATIONS LAB REVIEW: 01/21/20 04:53 01/21/20 04:53 01/21/20 04:53: Sodium 139.5, Potassium 3.67, Chloride 105.3, Carbon Dioxide 28.9, Anion Gap 8.97, BUN 17.0, Creatinine 0.50 L, Estimated GFR (MDRD) 125.00, BUN/Creatinine Ratio 34.00, Glucose 144.9 H, Calcium 8.69, Total Bilirubin 0.19 L, AST 21.0, ALT 20.2, Alkaline Phosphatase 108.2, Total Protein 7.12, Albumin 3.57, Globulin 3.55, Albumin/Globulin Ratio 1.00 01/21/20 04:53: WBC 10.40 H, RBC 4.94, Hgb 13.3, Hct 43.0, MCV 87.0, MCH 26.9 L, MCHC 30.9 L, RDW Coeff of Brenda 15.4 H, Plt Count 349, Immature Gran % (Auto) 0.7, Neut % (Auto) 68.5, Lymph % (Auto) 22.8, [place] % (Auto) 6.1, Eos % (Auto) 1.2, Baso % (Auto) 0.7, Neut # (Auto) 7.1 H, Lymph # (Auto) 2.4, [place] # (Auto) 0.6, Eos # (Auto) 0.1, Baso # (Auto) 0.1, Immature Gran # (Auto) 0.1 PLAN: DISCHARGE HOME DIET: REGULAR, NO CONCENTRATED SWEETS PER PATIENT ACTIVITY: RESUME TOLERATED (PATIENT REPORTS SHE USES A MOTORIZED CHAIR AT TIMES TO ASSIST WITH MOBILITY) AN APPOINTMENT IS SCHEDULED WITH DR. MILTON/YANI MEJIA APRN/PATEL PACHECO APRN ON January AT 2:30 PM CONTINUE TO PERFORM ACCU-CHECKS AT LEAST 2 TIMES DAILY CODE STATUS: DNR MS. JAIN IS ALERT AND ORIENTED X 4. SHE IS INDEPENDENT WITH ADL'S, BUT DID REQUIRE ASSISTANCE WITH PERSONAL CARE WHILE HOSPITALIZED DUE TO PAIN AND SWELLING TO THE LEFT HAND AND WRIST. THE SWELLING AND PAIN TO THE LEFT HAND HAS SUBSIDED. DUE TO DISHEVELED APPEARANCE AND MATTING OF HER HAIR; THE PATIENT CALLED HER FRIEND WHO ASSISTED IN CUTTING HER HAIR. SHE IS AMBULATORY TO THE BATHROOM WITH SBA OF 1 STAFF MEMBER. AT HOME SHE UTILIZES A MOTORIZED CHAIR TO ASSIST WITH MOBILITY. MS. JAIN REPORTS SHE WILL CALL "[facility]" TO COME BACK AND ASSIST WITH HER FOOD SERVICE AGENT. MS. JAIN IS INCONTINENT OF URINE AT TIMES; ESPECIALLY AT NIGHT DUE TO O VERACTIVE BLADDER. SHE IS CONTINENT AT OTHER TIMES. NO BM SINCE HER ADMISSION DESPITE APPLE/PRUNE JUICE MIXTURE, MILK OF MAGNESIA AND 5 OUNCES OF CITRATE OF MAGNESIA TODAY. MEAL INTAKES ARE GOOD AT 100% WITH PATIENT INDEPENDENT WITH FEEDING. SHE DENIES ABDOMINAL PAIN OR NAUSEA. SKIN IS INTACT AND FREE OF OPEN WOUNDS OR DECUBITUS ULCERS. MD YANI OCAMPO APRN/PATEL PACHECO APRN
[2020-01-21] MEDS ORDERED: GLYCERIN SUPPOSITORY RC STA (11:20)
--- NOTE | 2020-01-21 13:42 | ECHO2D ---
Date of Exam: 01/20/2020 Ordering Physician: DR. JACQUELIN MILTON Room #: 111 Reason for Echo: HTN, ELEVATED WBC M-Mode Normal Adult Results LV Dimensions Normal Adult Results AoV Opening excursions >1.6 >1.6 LVEDD-base- 3.5-5.8 5.7 Ao root dimensions 2.0-3.7 3.7 LVESD-base- 3.1-4.6 L. Atrium dimensions 1.9-3.8 4.5 Post. Wall thickness 0.8-1.1 0.2 IV septum (thickness) 0.7-1.2 1.4 Post. Wall excursion 0.72-1.3 NORMAL Septal motion NORMAL Systolic motion R. Ventricular cavity 1.5-2.0 3.0 LVEF 60% 57% Paradoxical septal wall motion NORMAL 2-D : 2-D M Mode Echocardiogram was performed using apical four chamber and left parasternal long and short axis views. Mitral, tricuspid and aortic valves appear to be normal. Contractility of the left ventricle seems to be normal. BORDERLINE LEFT VENTRICLE CAVITY. ENLARGED LEFT ATRIAL CAVITY. Aortic root appears to be normal. There is no pericardial effusion. There is no thrombus noted in the left ventricle or left atrial cavity. No mitral valve prolapse noted. M-MODE: MV: NORMAL AV: NORMAL TV: NORMAL PV: CHAMBER SIZE: ENLARGED LEFT ATRIAL, RIGHT VENTRICLE AND LEFT VENTRICLE CAVITIES WALL MOTION: NORMAL PERICARDIUM: NORMAL INTERPRETATION: 1. LEFT VENTRICULAR HYPERTROPHY WITH ENLARGED LEFT ATRIAL CAVITIES 2. ENLARGED RIGHT VENTRICLE AND LEFT VENTRICLE CAVITIES 3. NORMAL VALVES 4. NORMAL LEFT VENTRICLE CONTRACTILITY MTDD
--- NOTE | 2020-01-22 08:39 | PN ---
DATE OF SERVICE: 01/20/20 SUBJECTIVE: The patient is seen and examined today. The patient's condition has improved remarkably. The swelling on the left has practically subsided. The patient had Staph Hominis in the blood culture. She is on Vancomycin. Appetite has improved. WBC count has gone down. REVIEW OF SYSTEMS: CONSTITUTIONAL: No night sweats. No fatigue, malaise, lethargy. No fever or chills. HEENT: Eyes: No visual changes. No eye pain. No eye discharge. ENT: No runny nose. No epistaxis. No sinus pain. No sore throat. No odynophagia. No congestion. RESPIRATORY: No cough, no congestion. No hemoptysis. No shortness of breath. CARDIOVASCULAR: No angina symptoms. No CHF symptoms. No atypical chest pain for CAD. No palpitations. No PND. No orthopnea. GASTROINTESTINAL: No abdominal pain. No nausea or vomiting. No diarrhea or constipation. No hematemesis. No hematochezia. GENITOURINARY: No urgency. No frequency. No dysuria. No hematuria. No obstructive symptoms. No discharge. No pain. No significant abnormal bleeding. MUSCULOSKELETAL: No musculoskeletal pain; no joint swelling. NEUROLOGICAL: No headache. No neck pain. No syncope. No seizures. No dizziness. PSYCHIATRIC: Not anxious. No depression. No suicidal thoughts. No homicidal thoughts. SKIN: No rash. No lesions. No wounds. ENDOCRINE: No unexplained weight loss. No weight gain. HEMATOLOGIC/LYMPHATIC: No anemia. No purpura. No petechiae. No prolonged or excessive bleeding. No palpable lymph nodes. PHYSICAL EXAMINATION: VITAL SIGNS: Temperature 97.9, pulse 74, respirations 16, BP 144/88, pulse ox 99%. HEENT: Head normocephalic, atraumatic. Eyes: Extraocular muscles are intact. Pupils are equal, round and reactive to light and accommodation. Ears: No lesions. Nose appeared normal. Throat: No exudate or erythema. NECK: Supple. No JVD, no carotid bruit. No lymphadenopathy or thyromegaly. LUNGS: Decreased breath sounds but clear to auscultation. Percussion note normal. Chest symmetrical. HEART: S1, S2, no S3. No murmurs. No cyanosis or clubbing. No ascites. Pulses: Dorsalis pedis and posterior tibial pulses +1 to +2 bilaterally. ABDOMEN: Soft. Nontender. Bowel sounds active. No CVA tenderness. No mass felt. EXTREMITIES: Practically no swelling. She is able to move practically all fingers and has a mustanger. No edema. Full range of motion of all extremities, equal. NEUROLOGIC: No focal deficit. Cranial nerves II through XII are grossly intact. No headache, no double vision or headache. SKIN: Not dry. Intact. Turgor - normal. LYMPHATIC: No palpable lymph nodes/no lymphedema. MUSCULOSKELETAL: Normal joints with no swelling. Muscle tone is normal. The patient had an echocardiogram which shows LVH, enlarged LA cavity, LV contractility. LA size is 5.5 - 5.6 cm. LABS: Hemoglobin 12.5, hematocrit 39, WBC 10,000, normal differential. Creatinine 0.5, BUN 16, potassium 3.7. TSH normal. ASSESSMENT: 1. Left wrist cellulitis with Staph Hominis in the blood. 2. The patient's other problems are hypertension. 3. LVH. 4. Generalized osteoarthritis. 5. Diabetes mellitus. 6. Dyslipidemia. PLAN: 1. The patient's condition has improved. 2. Continue IV antibiotics. The patient is noncompliant, heavy smoker. Strongly advised to quit smoking. Counseling for smoking done. The patient is noncompliant with medications, diet and lifestyle recommendations. TIME SPENT: More than 30 minutes. Plan and coordination of the patient's care discussed in the presence of nurse. BINDU
--- NOTE | 2020-01-22 10:08 | DS ---
DATE OF SERVICE: 01/21/2020 FINAL DIAGNOSIS: CELLULITIS, LEFT HAND SEPSIS, STAPH HOMINIS SEVERE ARTHRITIS, FIRST CARPAL METACARPAL JOINT DIABETES TYPE 2 (A1C 8.17) HYPERTENSION DYSLIPIDEMIA NEUROPATHY GERD LVH BILATERAL PULMONARY NODULE, PER CT (03/2019) CAD, S/P STENT APPLICATION DEGENERATIVE DISC DISEASE, LEFT ELBOW, LEFT WRIST OSTEOARTHRITIS, RIGHT SHOULDER, RIGHT KNEE, LEFT HAND CHRONIC PAIN, PAIN MANAGEMENT (DR. NASCIMENTO) RIB FRACTURES, RIGHT (OLD) LEFT RENAL CALCULUS, NON-OBSTRUCTING PER CT TOBACCO USE NON-COMPLIANCE LIFE-STYLE, MEDICATIONS AND FOLLOW-UP CHOLECYSTECTOMY LAST VITALS: Temp Pulse Resp BP Pulse Ox 98.5 F 73 18 153/88 H 97 01/21/20 05:44 01/21/20 05:44 01/21/20 05:44 01/21/20 05:44 01/21/20 05:44 DISCHARGE INSTRUCTIONS: DISCHARGE HOME. AN APPOINTMENT IS SCHEDULED WITH DR. GUERRERO/YANI MEJIA APRN/PATEL PACHECO APRN ON January AT 2:30 PM. CONTINUE TO PERFORM ACCU- CHECKS AT LEAST 2 TIMES DAILY. CODE STATUS: DNR. TAKE THESE MEDICATIONS AT HOME: Aspirin (Aspirin 81 Mg Tablet.) 81 mg PO DAILYWM [facility] Last Admin: 01/21/20 08:41 Dose: 81 mg Documented by: Atorvastatin Calcium (Atorvastatin Calcium 20 Mg Tablet) 80 mg PO DAILY [facility] Last Admin: 01/21/20 08:41 Dose: 80 mg Documented by: Gabapentin (Gabapentin 300 Mg Capsule) 300 mg PO TID [facility] Last Admin: 01/21/20 08:41 Dose: 300 mg Documented by: Hydrochlorothiazide (Hydrochlorothiazide 25 Mg Tablet) 12.5 mg PO EVERY OTHER DAY [facility] Last Admin: 01/21/20 08:41 Dose: 12.5 mg Metformin HCl (Metformin Hcl 500 Mg Tablet) 1,000 mg PO BIDWM [facility] Last Admin: 01/21/20 08:41 Dose: 1,000 mg Documented by: Metoprolol Tartrate (Metoprolol Tartrate 25 Mg Tablet) 25 mg PO BID [facility] Last Admin: 01/21/20 08:41 Dose: 25 mg Documented by: Mirabegron (Mirabegron 25 Mg Tab.Er.24h) 50 mg PO DAILY [facility] Last Admin: 01/21/20 08:40 Dose: 50 mg Documented by: Non-Formulary Medication (Semaglutide [Ozempic]) 1 mg SUBCUT WEEKLY [facility] Last Admin: 01/21/20 08:55 Dose: Not Given Documented by: HYDROCODONE-ACETAMINOPHEN 10-325 Q6H PRN PRN Reason: Pain Last Admin: Documented by: Tizanidine HCl (Tizanidine Hcl 4 Mg Tablet) 4 mg PO DAILY [facility] Last Admin: 01/21/20 08:42 Dose: 4 mg Documented by: ALLERGIES: No Known Allergies Allergy (Verified 01/17/20 12:19) DISCONTINUED MEDICATIONS NONE NEW PRESCRIPTIONS: SEPTRA 1 TABLET BID FOR 7 DAYS DOXYCYCLINE 100 MG 1 DAILY FOR 7 DAYS SMOKING: SMOKING DISCOURAGED DISEASE SPECIFIC EDUCATION: APPOINTMENT NEW MEDICATIONS LAB REVIEW: 01/21/20 04:53 01/21/20 04:53 01/21/20 04:53: Sodium 139.5, Potassium 3.67, Chloride 105.3, Carbon Dioxide 28.9, Anion Gap 8.97, BUN 17.0, Creatinine 0.50 L, Estimated GFR (MDRD) 125.00, BUN/Creatinine Ratio 34.00, Glucose 144.9 H, Calcium 8.69, Total Bilirubin 0.19 L, AST 21.0, ALT 20.2, Alkaline Phosphatase 108.2, Total Protein 7.12, Albumin 3.57, Globulin 3.55, Albumin/Globulin Ratio 1.00 01/21/20 04:53: WBC 10.40 H, RBC 4.94, Hgb 13.3, Hct 43.0, MCV 87.0, MCH 26.9 L, MCHC 30.9 L, RDW Coeff of Brenda 15.4 H, Plt Count 349, Immature Gran % (Auto) 0.7, Neut % (Auto) 68.5, Lymph % (Auto) 22.8, [place] % (Auto) 6.1, Eos % (Auto) 1.2, Baso % (Auto) 0.7, Neut # (Auto) 7.1 H, Lymph # (Auto) 2.4, [place] # (Auto) 0.6, Eos # (Auto) 0.1, Baso # (Auto) 0.1, Immature Gran # (Auto) 0.1 DIET: REGULAR, NO CONCENTRATED SWEETS PER PATIENT ACTIVITY: RESUME TOLERATED (PATIENT REPORTS SHE USES A MOTORIZED CHAIR AT TIMES TO ASSIST WITH MOBILITY) HOSPITAL COURSE: 64 year old white female presented initially to the emergency room on 01/16 with complaints of left hand/wrist pain and swelling. She denied any trauma. X-ray showed no acute osseous abnormality, multifocal osteoarthritis up to the first CMC joint, posterior soft tissue swelling. Further evaluation on CT showed arthritis, osteoarthritis. The patient was started on Antibiotics with a positive set of blood cultures. She received IV Rocephin and IV Vancomycin. She also received some steroids. She remained afebrile throughout her hospital stay. With treatment her left hand swelling and pain resolved. A 2D echo was done that showed left ventricular hypertrophy with enlarged left arterial cavities, enlarged ventricles, ejection fraction of 57%. The patient also reported difficulty with initiating bowel movement. She was given half a bottle of Mag Citrate before discharge. She will be sent home on Septra BID for 7 days and Doxycycline 100mg daily for 7 days. She did require some assistance while hospitalized with some self care. The patient reports that she has [facility]. She will notify them that she is returning home so that they can come in to assist her. The patient is stable for discharge. We will see her in the office within the next week or two. She is to call with any questions or concerns. Fall precautions were discussed. The patient was seen and examined with Dr. Guerrero and plan was discussed. TIME SPENT: More than 60 minutes. BINDU
--- NOTE | 2020-01-22 13:00 | PN ---
DATE OF SERVICE: 01/21/20 SUBJECTIVE: The patient was seen and examined today. The patient's condition has improved. Her wrist is a lot better. She is afebrile. The patient is going to be discharged home on Septra and Doxycycline. Echo report discussed with her. Strongly advised to quit smoking. Advised to have followup on a regular basis. The patient is noncompliant of lifestyle, medications and followup. CONDITION: Stable. TIME SPENT: More than 30 minutes. Plan and coordination of the patient's care discussed in the presence of nurse. BINDU
--- NOTE | 2020-01-22 13:04 | PN ---
BILLING 01/17/20 ADMISSION DAY LEVEL 5 01/18/20 INTERMEDIATE 01/19/20 INTERMEDIATE 01/20/20 INTERMEDIATE 01/21/20 DISCHARGE MTDD
[2020-01-25 17:17] LABS: AEROBIC + ANAEROB SUSC Final report (.); BACTERIA IDENTIFICATION Final report (.)
== END 2020-01-21 13:22 | disposition home or self-care (01) | DRG 947 ==
LOC: ED 12:06 → MEDSURG A 14:26
PROVIDERS: ADMIT General Practice; ATTEND Internal Medicine
DX: I10 Essential (primary) hypertension; L03.112 Cellulitis of left axilla; E11.9 Type 2 diabetes mellitus without complications; M79.602 Pain in left arm; D72.829 Elevated white blood cell count, unspecified; R60.0 Localized edema; K21.9 Gastro-esophageal reflux disease without esophagitis; M25.532 Pain in left wrist; E78.5 Hyperlipidemia, unspecified; I25.10 Atherosclerotic heart disease of native coronary artery without angina pectoris; M19.90 Unspecified osteoarthritis, unspecified site; G62.9 Polyneuropathy, unspecified; A41.9 Sepsis, unspecified organism